=== PATIENT | female | born 2000 | race Caucasian/White ===

== ENCOUNTER 2020-03-30 13:49 | Emergency (ER) | payer MEDICAID, SELFPAY ==
[2020-03-30] VITALS (7 sets, daily range): BP systolic 133–146; BP diastolic 87–94; PULSE 82–100; RESP 16–18; TEMP 36.6; O2SAT 94–98; BMI 38.0
--- NOTE | 2020-03-30 14:19 | ED_ITS ---
HPI - Abdominal Pain General: Chief Complaint: Abdominal Pain Stated Complaint: lower pelvic pain Time Seen by Provider: 03/30/20 13:55 History of Present Illness: HPI narrative: 19-year-old female comes in complaining abdominal pain more periumbilical suprapubic pain began last night. She has leukorrhea of but no significant vaginal discharge change. She is about [address] Oliva. He has no vomiting denies dysuria urgency or frequency she does complain of diarrhea and nausea as well denies any GI blood losses no shortness of breath or cough. She notes that vomiting is worse when she drinks any fluids and she has had a very poor appetite. She denies any vaginal bleeding. MD elicited complaint: abdominal pain Pertinent past history: other (Current ) Onset (ago): day(s) Location: Periumbilical and Suprapubic Quality: cramping Radiation: none Migration to: no migration Exacerbating factors: nothing Relieving factors: nothing Associated Symptoms: Reports anorexia, poor appetite and vomiting; Denies change in bowel habits, change in stool character, chills, coffee ground emesis, constipation, GI cramping, diarrhea, dyspepsia, dysuria, fever(s), heartburn, hematochezia, hematuria and hematemesis Treatments prior to arrival: other Related Data: Date of Last Menstrual Period: 02/03/20 Review of Systems Const: Denies: fever(s) or chills ENMT: Denies: throat pain, ear or mastoid pain, nasal discharge or nasal congestion Card: Denies: chest pain, edema, dyspnea on exertion or orthopnea Resp: Denies: dyspnea, productive cough or non-productive cough GI: Reports: vomiting; Denies: hematemesis, coffee ground emesis, heartburn, diarrhea, constipation, GI cramping, change in bowel habits, change in stool character or hematochezia : Denies: dysuria or hematuria Skin/Breast: Denies: rash or pruritus PFSH ED PFSH: Medical History (Updated 04/02/20 @ 22:27 by ELY Galdamez) Ganglion cyst state, incidental Surgical History (Updated 03/30/20 @ 14:23 by Clarence Martin DO) S/P tonsillectomy and adenoidectomy Social History Smoking and tobacco status: current every day smoker Female Reproductive History: Date of last menstrual period: 02/03/20 Physical Exam Const: COMMON NORMALS: no acute distress GENERAL APPEARANCE: cooperative and comfortable ORIENTATION/CONSCIOUSNESS: Yes awake, Yes oriented to person, Yes oriented to place and Yes oriented to time HENMT: COMMON NORMALS: normocephalic, atraumatic, hearing grossly normal bilaterally, external ears normal, EAC's normal, TM's normal bilaterally, Normal nasal mucous membranes and turbinates present, moist oral mucous membranes and oropharynx normal HEAD & SCALP: normocephalic and atraumatic NOSE: Normal nasal mucous membranes and turbinates present EXTERNAL EAR: Yes external ears normal EXTERNAL AUDITORY CANAL: EAC's normal TYMPANIC MEMBRANE: TM's normal bilaterally Eye: COMMON NORMALS: Equal, round and reactive pupils present, EOMs intact bilaterally, conjunctivae normal and no scleral icterus CONJUNCTIVA: Yes conjunctivae normal PUPIL: Yes Equal, round and reactive pupils present Neck/C-Spine: COMMON NORMALS: full ROM, no lymphadenopathy, supple and no JVD Lymph: LYMPHATIC: no lymphadenopathy noted and no lymphedema noted Resp: COMMON NORMALS: normal respiratory effort, No retractions, No use of accessory muscles and clear to auscultation bilaterally AUSCULTATION: clear to auscultation bilaterally Cardio: COMMON NORMALS: no JVD, regular rate, regular rhythm and No murmurs present (Cardio) RATE: regular rate RHYTHM: regular rhythm GI: COMMON NORMALS: Soft to palpation and No hepatosplenomegaly present AUSCULTATION: Yes normoactive bowel sounds PALPATION: Yes Soft to palpation, No Tenderness to palpation present (GI), No Guarding due to palpation present (GI) and Yes No hepatosplenomegaly present Extremity: COMMON NORMALS: normal to inspection, capillary refill normal, no clubbing, cyanosis or edema, no calf tenderness and no pedal edema Neuro: SENSORIUM/ORIENTATION: Yes oriented to person, Yes oriented to place and Yes oriented to time Skin: COMMON NORMALS: no rashes or lesions noted GENERAL SKIN EXAM: no rashes or lesions noted Course Vital Signs: Vital signs: Vital Signs Temperature 97.9 F 03/30/20 13:55 Pulse Rate 83 03/30/20 19:03 Respiratory Rate 16 03/30/20 19:03 Blood Pressure 135/87 03/30/20 19:03 Pulse Oximetry 98 03/30/20 19:03 MDM - Abdominal Pain MDM Narrative: Medical decision making narrative: Reviewed findings with the patient. Will discharge patient home with ovarian cyst follow-up with her primary care for potential referral for ENT if persists return for this problem Lab Data: Labs: Lab Results 03/30/20 03/30/20 03/30/20 Range/Units 14:22 14:22 14:30 WBC 13.4 H (4.0-10.0) 10^3/ uL RBC 4.82 (4.1-5.3) 10^6/u L Hgb 12.7 (11.5-15.3) g/dL Hct 40.1 (37.0-47.0) % MCV 83.2 (81-99) fL MCH 26.3 L (28.0-34.0) pg MCHC 31.7 (30.0-36.0) g/dL RDW 15.4 H (12.1-15.1) % Plt Count 238 (130-400) 10^3/c mm MPV 10.3 (7.4-10.4) fL Neut % (Auto) 89.2 % Lymph % (Auto) 8.0 % [place] % (Auto) 1.9 % Eos % (Auto) 0.1 % Baso % (Auto) 0.2 % Neut # (Auto) 12.0 H (1.8-7.7) 10^3/u L Lymph # (Auto) 1.1 (0.8-4.8) 10^3/u L [place] # (Auto) 0.3 (0.2-0.9) 10^3/u L Eos # (Auto) 0.0 (0.0-0.8) 10^3/u L Baso # (Auto) 0.0 (0.0-0.1) 10^3/u L Nucleated RBC % (a uto) 0 % Nucleated RBCs # 0.0 /100WBC Sodium 133 L (136-145) mmol/L Potassium 3.8 (3.5-5.1) mmol/L Chloride 100 (98-107) mmol/L Carbon Dioxide 21 L (22-29) mmol/L Anion Gap 15.8 (5-19) BUN 8 (6-20) mg/dL Creatinine 0.4 L (0.5-0.9) mg/dL GFR Calculation 201.5 H (90-130) mL/min Glucose 105 (65-115) mg/dL Calculated Osmolal ity 272 L (285-295) mOsm/k g Calcium 10.0 (8.5-10.5) mg/dL Total Bilirubin 0.2 (0.15-1.2) mg/dL AST 18 (0-32) U/L ALT 22 (0-33) U/L Alkaline Phosphata se 64 (35-105) IU/L Total Protein 7.3 (6.6-8.7) g/dL Albumin 4.6 (3.5-5.2) g/dL Globulin 2.7 (1.3-4.6) g/dL Lipase 16 (13-60) U/L HCG, Qual Positive H (Negative) Urine Color (Yellow) Urine Appearance (CLEAR) Urine pH (5-7) Ur Specific Gravit y (1.005-1.030) Urine Protein (Negative) Urine Glucose (UA) (Normal) Urine Ketones (Negative) Urine Blood (Negative) Urine Nitrate (Negative) Urine Bilirubin (NEGATIVE) Urine Urobilinogen (Negative) mg/dL Ur Leukocyte Cristy ase (Negative) 03/30/20 Range/Units 14:30 WBC (4.0-10.0) 10^3/ uL RBC (4.1-5.3) 10^6/u L Hgb (11.5-15.3) g/dL Hct (37.0-47.0) % MCV (81-99) fL MCH (28.0-34.0) pg MCHC (30.0-36.0) g/dL RDW (12.1-15.1) % Plt Count (130-400) 10^3/c mm MPV (7.4-10.4) fL Neut % (Auto) % Lymph % (Auto) % [place] % (Auto) % Eos % (Auto) % Baso % (Auto) % Neut # (Auto) (1.8-7.7) 10^3/u L Lymph # (Auto) (0.8-4.8) 10^3/u L [place] # (Auto) (0.2-0.9) 10^3/u L Eos # (Auto) (0.0-0.8) 10^3/u L Baso # (Auto) (0.0-0.1) 10^3/u L Nucleated RBC % (a uto) % Nucleated RBCs # /100WBC Sodium (136-145) mmol/L Potassium (3.5-5.1) mmol/L Chloride (98-107) mmol/L Carbon Dioxide (22-29) mmol/L Anion Gap (5-19) BUN (6-20) mg/dL Creatinine (0.5-0.9) mg/dL GFR Calculation (90-130) mL/min Glucose (65-115) mg/dL Calculated Osmolal ity (285-295) mOsm/k g Calcium (8.5-10.5) mg/dL Total Bilirubin (0.15-1.2) mg/dL AST (0-32) U/L ALT (0-33) U/L Alkaline Phosphata se (35-105) IU/L Total Protein (6.6-8.7) g/dL Albumin (3.5-5.2) g/dL Globulin (1.3-4.6) g/dL Lipase (13-60) U/L HCG, Qual (Negative) Urine Color Yellow (Yellow) Urine Appearance Clear (CLEAR) Urine pH 7 (5-7) Ur Specific Gravit y 1.010 (1.005-1.030) Urine Protein Neg (Negative) Urine Glucose (UA) Norm (Normal) Urine Ketones Negative (Negative) Urine Blood Neg (Negative) Urine Nitrate Negative (Negative) Urine Bilirubin Neg (NEGATIVE) Urine Urobilinogen Norm (Negative) mg/dL Ur Leukocyte Cristy ase Negative (Negative) Discharge Plan Discharge Patient Disposition: Home, Self-Care Clinical Impression: Abdominal pain, Ovarian cyst Condition: Stable Prescriptions: New promethazine 12.5 mg tablet 12.5 mg PO Q6H PRN (Reason: nausea and vomiting) Qty: 20 RF: 0 hydrocodone-acetaminophen 5-325 mg tablet 1 tab PO Q6H PRN (Reason: pain) Qty: 20 RF: 0 No Action PNV cmb#95-ferrous fumarate-FA [] 28 mg iron- 800 mcg Tablet 1 tab PO DAILY RF: 0 Tylenol 325 mg Tablet 325 mg PO QID PRN (Reason: PAIN/FEVER) RF: 0 Discharge Orders: Discharge Order (Routine); Ordered 03/30/20 Ordered By: Clarence Martin Referrals: Dayana Oliva MD [Primary Care Provider] - Discharge Diet: Clear Liquid Discharge Activity: Increase activity as tolerated Patient Instructions: Abdominal Pain (ED) Activity Restrictions/Additional Instructions: Follow-up with your primary care doctor return to the emergency room for further problems Discharge Date/Time: 03/30/20 19:04 Coding Level of Care Code ED Music Grapher for Chg Fwd Exam Comprehensive
[2020-03-30] MEDS: sodium chloride 0.9% 1,000 ML 999 ML IV (14:22)
[2020-03-30 14:26] LABS: Basophils % 0.2 %; Eosinophils % 0.1 %; Hematocrit 40.1 % (37.0-47.0); Hemoglobin 12.7 g/dL (11.5-15.3); Lymphocytes # 1.1 10^3/uL (0.8-4.8); Mean Corpuscular HGB Conc 31.7 g/dL (30.0-36.0); Mean Corpuscular Hemoglobin 26.3 pg (28.0-34.0); Mean Corpuscular Volume 83.2 fL (81-99); Mean Platelet Volume 10.3 fL (7.4-10.4); Monocytes # 0.3 10^3/uL (0.2-0.9); Monocytes % 1.9 %; Neutrophils % 89.2 %; Nucleated Red Blood Cells % 0 %; Platelet Count 238 10^3/cmm (130-400); Red Blood Count 4.82 10^6/uL (4.1-5.3); Red Cell Distribution Width 15.4 % (12.1-15.1); White Blood Count 13.4 10^3/uL (4.0-10.0)
[2020-03-30 14:37] LABS: HCG Qualitative Urine. Positive (Negative)
[2020-03-30 14:51] LABS: Add Urine Microscopic? NO
[2020-03-30 14:52] LABS: Bilirubin Urine Neg (NEGATIVE); Blood Urine Neg (Negative); Glucose Urine UA Norm (Normal); Ketones Urine Negative (Negative); Leukocyte Esterase Urine Negative (Negative); Nitrate Urine Negative (Negative); Protein Urine Neg (Negative); Urine Appearance Clear (CLEAR); Urine Color Yellow (Yellow); Urobilinogen Urine Norm (Negative); pH Urine 7 (5-7)
[2020-03-30 14:56] LABS: Alanine Aminotransferase 22 U/L (0-33); Albumin Level 4.6 g/dL (3.5-5.2); Alkaline Phosphatase 64 IU/L (35-105); Anion Gap 15.8 (5-19); Aspartate Amino Transferase 18 U/L (0-32); Blood Urea Nitrogen 8 mg/dL (6-20); Carbon Dioxide 21 mmol/L (22-29); Chloride 100 mmol/L (98-107); Globulin 2.7 g/dL (1.3-4.6); Glomerular Filtration Rate 201.5 mL/min (90-130); Glucose 105 mg/dL (65-115); Lipase 16 U/L (13-60); Osmolality Calculated 272 mOsm/kg (285-295); Potassium 3.8 mmol/L (3.5-5.1); Sodium 133 mmol/L (136-145); Total Bilirubin 0.2 mg/dL (0.15-1.2); Total Protein 7.3 g/dL (6.6-8.7)
--- NOTE | 2020-03-30 16:40 | USR_ITS ---
PROCEDURE INFORMATION: Exam: US , Limited Exam date and time: 03/30/2020 4:49 PM Age: 19 years old Clinical indication: complicated by abdominal or pelvic pain; Lower; Second trimester; Gestational age or lmp: 15w6d; ; Patient HX: PT in extreme pain, started yesterday. No bleeding or discharge; Additional info: Confiem intrauterine preg TECHNIQUE: Imaging protocol: Real-time ultrasound of the maternal uterus with image documentation. Exam focused on the clinical indication. COMPARISON: No relevant prior studies available. FINDINGS: Gestation: Single intrauterine gestation in cephalic presentation. Measured estimated gestational age 15 weeks 6 days. Biparietal diameter 15 weeks 5 days, head circumference 16 weeks 0 days, abdominal circumference 16 weeks 3 days, femur length 15 weeks 2 days. weight approximately 138 g. HC/AC 1.16. FL/HC 14.9. FL/AC 17.3 No detailed anatomy assessment imaging performed. Heart rate: heart rate 147 bpm and regular. Placenta: Posterior placenta without visible previa or subchorionic hemorrhage. MATERNAL: Cervix: Cervical length 3 cm. Right adnexa: Right ovary measures 3.7 cm x 2.5 cm x 3.6 cm. Positive arterial flow to color Doppler assessment. No visible right adnexal mass or cystic lesion. Left adnexa: Very large simple appearing cystic structure left adnexa dimensions approximately 13 cm by 10.3 cm x 12.1 cm. Potential very large left ovarian cyst versus paraovarian/fallopian cyst. Left ovary measures measures approximately 3.5 cm by 3.4 cm by 3.5 cm. Positive arterial flow to color Doppler assessment. Other findings: No free fluid in the cul-de-sac. US/US OB limited [id number] IMPRESSION: 1. Large left adnexal simple cystic structure dimensions approximately 13 cm x 10.3 cm x 12.1 cm potential very large left ovarian cyst versus paraovarian/fallopian cyst. 2. Single intrauterine gestation in cephalic presentation with positive activity measured age 15 weeks 6 days. 3. heart rate 147 bpm and regular.
[2020-03-30] MEDS: morphine 4 mg/mL SDV 1 mL 2 MG IVP (17:28)
== END 2020-03-30 19:04 | disposition home or self-care (01) ==
PROVIDERS: Emergency Provider Family Medicine; PCP Family Medicine
DX: O34.82 Maternal care for other abnormalities of pelvic organs, second trimester (principal); N83.292 Other ovarian cyst, left side; Z3A.16 16 weeks gestation of pregnancy; O99.332 Smoking (tobacco) complicating pregnancy, second trimester; F17.210 Nicotine dependence, cigarettes, uncomplicated
CPT/HCPCS: 12345; 76815; 80053; 81003; 81025; 83690; 85025; 87210; 87491; 87591; 87661; 96361; 96374; 96375; 99284; A9270; J2270; J7030

== ENCOUNTER 2020-04-02 17:00 | Emergency (ER) | payer MEDICAID, SELFPAY ==
[2020-04-02] VITALS (7 sets, daily range): BP systolic 109–120; BP diastolic 64–96; PULSE 87–120; RESP 16–22; TEMP 36.5–37.3; O2SAT 97–100; BMI 37.8
--- NOTE | 2020-04-02 17:35 | USR_ITS ---
PROCEDURE INFORMATION: Exam: US Nonobstetric Pelvis; Complete Exam date and time: 04/02/2020 7:01 PM Age: 19 years old Clinical indication: Pelvic pain; Additional info: Worsening ovarian cyst pain, 15 weeks TECHNIQUE: Imaging protocol: Transabdominal pelvic nonobstetric ultrasound. Complete exam. Real time ultrasound with image documentation. COMPARISON: US OB limited [id number] 03/30/2020 4:53 PM FINDINGS: Gestation: There is a single live intrauterine gestation with a heart rate of 176 bpm. This was a limited study without full evaluation of the uterus or gestation. Uterus/cervix: Uterus measures 11.6 x 10.6 x 10.6 cm. Right adnexa: The right ovary is unremarkable and measures 3.4 x 2.8 x 1.3 cm. Left adnexa: There is a left ovarian cyst that measures 13.9 x 12.1 x 11.4 cm. There are few internal echoes or debris within the left ovarian cyst. The left ovarian cyst on the prior exam measured 13.0 x 10.3 x 12.1 cm. Doppler/color flow evaluation of the left or right ovary was not performed. Free fluid: No free fluid. Bladder: Normal. US/US pelvic complete* [id number] IMPRESSION: 1. Large left adnexal simple cyst with a small amount of debris. The measurement is slightly larger than the prior exam. No free fluid. No ovarian Doppler or color flow images are provided. 2. Limited visualization of the intrauterine gestation demonstrates good cardiac activity.
--- NOTE | 2020-04-02 17:49 | W.ED.ABDPA2 ---
Documented by User: ELY Galdamez 04/02/20 20:56 HPI - Abdominal Pain General: Chief Complaint: Abdominal Pain Stated Complaint: lower abd pain Time Seen by Provider: 04/02/20 17:34 History of Present Illness: HPI narrative: Patient sent over from Dr. Oliva's office for acute abdomen. Patient is positive for chlamydia and track and not treated. Patient was seen here the other day in the ER with a left ovarian cyst and seems to be worse now. Patient did not get the pain medicine prescription filled. Does not have fever chills or vaginal discharge. MD elicited complaint: abdominal pain Pertinent past history: other Onset (ago): day(s) Pain Consistency: constant Location: Diffuse and Pelvis Severity: severe Pain scale (0-10): 8 Quality: aching Exacerbating factors: movement Relieving factors: rest Associated Symptoms: Denies chills, fever(s), nausea and vomiting Related Data: Date of Last Menstrual Period: 01/29/20 Review of Systems Const: Denies: fever(s), chills or body aches Eyes: Denies: change in vision or blurry vision ENMT: Denies: throat pain or nasal congestion Card: Denies: chest pain or dyspnea on exertion Resp: Denies: dyspnea, productive cough or non-productive cough GI: Denies: abdominal pain, nausea or vomiting : Reports: pelvic pain Musc: Denies: extremity pain Skin/Breast: Denies: rash Neuro: Denies: headache(s) Psych: Denies: anxiety or depression Stas/Lymph: Denies: easy bruising PFSH ED PFSH: Medical History (Updated 03/30/20 @ 17:56 by Clarence Martin DO) Ganglion cyst state, incidental Surgical History (Updated 03/30/20 @ 14:23 by Clarence Martin DO) S/P tonsillectomy and adenoidectomy Social History Smoking and tobacco status: current every day smoker Female Reproductive History: Date of last menstrual period: 01/29/20 Physical Exam Const: COMMON NORMALS: no acute distress, average body habitus and patient oriented x3 HENMT: COMMON NORMALS: normocephalic HEAD & SCALP: normal to inspection and normocephalic FACE & SINUS: normal facial exam Eye: COMMON NORMALS: conjunctivae normal GENERAL EYE: appearance normal, both eyes and all related structures CONJUNCTIVA: Yes conjunctivae normal Neck/C-Spine: COMMON NORMALS: no JVD Chest: COMMONS NORMALS: normal inspection of the chest Resp: COMMON NORMALS: normal respiratory effort and clear to auscultation bilaterally AUSCULTATION: clear to auscultation bilaterally Cardio: COMMON NORMALS: no JVD, regular rate and regular rhythm RATE: regular rate RHYTHM: regular rhythm GI: COMMON NORMALS: Normal to inspection, nondistended, normoactive bowel sounds present INSPECTION: Yes normal to inspection AUSCULTATION: Yes normoactive bowel sounds PALPATION: Yes Tenderness to palpation present (GI) (Generalized worse in the left lower quadrant) Extremity: COMMON NORMALS: normal to inspection and full ROM Neuro: COMMON NORMALS: patient oriented x3 Course Vital Signs: Vital signs: Vital Signs Temperature 99.1 F 04/02/20 20:00 Pulse Rate 106 H 04/02/20 20:00 Respiratory Rate 20 H 04/02/20 20:00 Blood Pressure 120/71 04/02/20 20:00 Pulse Oximetry 97 04/02/20 20:00 MDM - Abdominal Pain MDM Narrative: Medical decision making narrative: Spoke with Dr. Chan about this case. said I should give the OB doctor. call I spoke with Dr. Rose times to Dr. Oliva x2 . Dr. Oliva agreed to admit and Dr. Roseagreed to consult on this patient. Dr. Rose came down and consulted on patient and said patient need to be transferred to [place] for possible removal of the cyst would require a surgical procedure and can be done laparoscopically. I spoke with Dr. Fortino Herman at [facility] and agreed except patient Lab Data: Labs: Lab Results 04/02/20 04/02/20 04/02/20 Range/Units 17:25 17:25 18:28 WBC 16.8 H (4.0-10.0) 10^3/ uL RBC 4.11 (4.1-5.3) 10^6/u L Hgb 11.5 (11.5-15.3) g/dL Hct 34.4 L (37.0-47.0) % MCV 83.7 (81-99) fL MCH 28.0 (28.0-34.0) pg MCHC 33.4 (30.0-36.0) g/dL RDW 15.4 H (12.1-15.1) % Plt Count 271 (130-400) 10^3/c mm MPV 10.0 (7.4-10.4) fL Neut % (Auto) 84.0 % Lymph % (Auto) 8.6 % [place] % (Auto) 6.7 % Eos % (Auto) 0.2 % Baso % (Auto) 0.1 % Neut # (Auto) 14.1 H (1.8-7.7) 10^3/u L Lymph # (Auto) 1.5 (0.8-4.8) 10^3/u L [place] # (Auto) 1.1 H (0.2-0.9) 10^3/u L Eos # (Auto) 0.0 (0.0-0.8) 10^3/u L Baso # (Auto) 0.0 (0.0-0.1) 10^3/u L Nucleated RBC % (a uto) 0 % Nucleated RBCs # 0.0 /100WBC Sodium 133 L (136-145) mmol/L Potassium 3.6 (3.5-5.1) mmol/L Chloride 100 (98-107) mmol/L Carbon Dioxide 18 L (22-29) mmol/L Anion Gap 18.6 (5-19) BUN 7 (6-20) mg/dL Creatinine 0.4 L (0.5-0.9) mg/dL GFR Calculation 201.5 H (90-130) mL/min Glucose 112 (65-115) mg/dL Calculated Osmolal ity 273 L (285-295) mOsm/k g Calcium 9.6 (8.5-10.5) mg/dL Total Bilirubin 0.4 (0.15-1.2) mg/dL AST 10 (0-32) U/L ALT 17 (0-33) U/L Alkaline Phosphata se 69 (35-105) IU/L Total Protein 7.3 (6.6-8.7) g/dL Albumin 4.0 (3.5-5.2) g/dL Globulin 3.3 (1.3-4.6) g/dL Lipase 12 L (13-60) U/L Urine Color Yellow (Yellow) Urine Appearance Cloudy A (CLEAR) Urine pH 5 (5-7) Ur Specific Gravit y 1.020 (1.005-1.030) Urine Protein Neg (Negative) Urine Glucose (UA) Norm (Normal) Urine Ketones 2+ H (Negative) Urine Blood Neg (Negative) Urine Nitrate Negative (Negative) Urine Bilirubin Neg (NEGATIVE) Urine Urobilinogen Neg (Negative) mg/dL Ur Leukocyte Cristy ase 2+ H (Negative) Urine RBC 0-4 H (0-2) /hpf Urine WBC 25-40 H (0-5) /hpf Ur Squamous Epith Cells >100 H (0-5) Urine Bacteria 1+ H (NONE) Discharge Plan Discharge Prescriptions: No Action PNV cmb#95-ferrous fumarate-FA [] 28 mg iron- 800 mcg Tablet 1 tab PO DAILY RF: 0 promethazine 12.5 mg tablet 12.5 mg PO Q6H PRN (Reason: nausea and vomiting) Qty: 20 RF: 0 hydrocodone-acetaminophen 5-325 mg tablet 1 tab PO Q6H PRN (Reason: pain) Qty: 20 RF: 0 Tylenol 325 mg Tablet 325 mg PO QID PRN (Reason: PAIN/FEVER) RF: 0 Coding Level of Care Code ED Cartridge Loading Operator for Chg Fwd Exam Comprehensive Documented by User: Jessica Chan MD 04/02/20 17:53 HPI - Abdominal Pain General: Chief Complaint: Abdominal Pain Stated Complaint: lower abd pain Time Seen by Provider: 04/02/20 17:34 PFSH ED PFSH: Medical History (Updated 03/30/20 @ 17:56 by Clarence Martin DO) Ganglion cyst state, incidental Surgical History (Updated 03/30/20 @ 14:23 by Clarence Martin DO) S/P tonsillectomy and adenoidectomy Social History Smoking and tobacco status: current every day smoker Course Vital Signs: Vital signs: Vital Signs Temperature 99.1 F 04/02/20 20:00 Pulse Rate 106 H 04/02/20 20:00 Respiratory Rate 20 H 04/02/20 20:00 Blood Pressure 120/71 04/02/20 20:00 Pulse Oximetry 97 04/02/20 20:00 MDM - Abdominal Pain Lab Data: Labs: Lab Results 04/02/20 04/02/20 04/02/20 Range/Units 17:25 17:25 18:28 WBC 16.8 H (4.0-10.0) 10^3/ uL RBC 4.11 (4.1-5.3) 10^6/u L Hgb 11.5 (11.5-15.3) g/dL Hct 34.4 L (37.0-47.0) % MCV 83.7 (81-99) fL MCH 28.0 (28.0-34.0) pg MCHC 33.4 (30.0-36.0) g/dL RDW 15.4 H (12.1-15.1) % Plt Count 271 (130-400) 10^3/c mm MPV 10.0 (7.4-10.4) fL Neut % (Auto) 84.0 % Lymph % (Auto) 8.6 % [place] % (Auto) 6.7 % Eos % (Auto) 0.2 % Baso % (Auto) 0.1 % Neut # (Auto) 14.1 H (1.8-7.7) 10^3/u L Lymph # (Auto) 1.5 (0.8-4.8) 10^3/u L [place] # (Auto) 1.1 H (0.2-0.9) 10^3/u L Eos # (Auto) 0.0 (0.0-0.8) 10^3/u L Baso # (Auto) 0.0 (0.0-0.1) 10^3/u L Nucleated RBC % (a uto) 0 % Nucleated RBCs # 0.0 /100WBC Sodium 133 L (136-145) mmol/L Potassium 3.6 (3.5-5.1) mmol/L Chloride 100 (98-107) mmol/L Carbon Dioxide 18 L (22-29) mmol/L Anion Gap 18.6 (5-19) BUN 7 (6-20) mg/dL Creatinine 0.4 L (0.5-0.9) mg/dL GFR Calculation 201.5 H (90-130) mL/min Glucose 112 (65-115) mg/dL Calculated Osmolal ity 273 L (285-295) mOsm/k g Calcium 9.6 (8.5-10.5) mg/dL Total Bilirubin 0.4 (0.15-1.2) mg/dL AST 10 (0-32) U/L ALT 17 (0-33) U/L Alkaline Phosphata se 69 (35-105) IU/L Total Protein 7.3 (6.6-8.7) g/dL Albumin 4.0 (3.5-5.2) g/dL Globulin 3.3 (1.3-4.6) g/dL Lipase 12 L (13-60) U/L Urine Color Yellow (Yellow) Urine Appearance Cloudy A (CLEAR) Urine pH 5 (5-7) Ur Specific Gravit y 1.020 (1.005-1.030) Urine Protein Neg (Negative) Urine Glucose (UA) Norm (Normal) Urine Ketones 2+ H (Negative) Urine Blood Neg (Negative) Urine Nitrate Negative (Negative) Urine Bilirubin Neg (NEGATIVE) Urine Urobilinogen Neg (Negative) mg/dL Ur Leukocyte Cristy ase 2+ H (Negative) Urine RBC 0-4 H (0-2) /hpf Urine WBC 25-40 H (0-5) /hpf Ur Squamous Epith Cells >100 H (0-5) Urine Bacteria 1+ H (NONE) Discharge Plan Discharge Prescriptions: No Action PNV cmb#95-ferrous fumarate-FA [] 28 mg iron- 800 mcg Tablet 1 tab PO DAILY RF: 0 promethazine 12.5 mg tablet 12.5 mg PO Q6H PRN (Reason: nausea and vomiting) Qty: 20 RF: 0 hydrocodone-acetaminophen 5-325 mg tablet 1 tab PO Q6H PRN (Reason: pain) Qty: 20 RF: 0 Tylenol 325 mg Tablet 325 mg PO QID PRN (Reason: PAIN/FEVER) RF: 0 Coding Level of Care Code ED Cartridge Loading Operator for Chg Fwd Exam Comprehensive
[2020-04-02 17:52] LABS: Basophils % 0.1 %; Eosinophils % 0.2 %; Hematocrit 34.4 % (37.0-47.0); Hemoglobin 11.5 g/dL (11.5-15.3); Lymphocytes # 1.5 10^3/uL (0.8-4.8); Lymphocytes % 8.6 %; Mean Corpuscular HGB Conc 33.4 g/dL (30.0-36.0); Mean Corpuscular Volume 83.7 fL (81-99); Monocytes # 1.1 10^3/uL (0.2-0.9); Monocytes % 6.7 %; Neutrophils # 14.1 10^3/uL (1.8-7.7); Nucleated Red Blood Cells % 0 %; Platelet Count 271 10^3/cmm (130-400); Red Blood Count 4.11 10^6/uL (4.1-5.3); Red Cell Distribution Width 15.4 % (12.1-15.1); White Blood Count 16.8 10^3/uL (4.0-10.0)
[2020-04-02 18:10] LABS: Alanine Aminotransferase 17 U/L (0-33); Alkaline Phosphatase 69 IU/L (35-105); Anion Gap 18.6 (5-19); Aspartate Amino Transferase 10 U/L (0-32); Blood Urea Nitrogen 7 mg/dL (6-20); Calcium 9.6 mg/dL (8.5-10.5); Carbon Dioxide 18 mmol/L (22-29); Chloride 100 mmol/L (98-107); Globulin 3.3 g/dL (1.3-4.6); Glomerular Filtration Rate 201.5 mL/min (90-130); Glucose 112 mg/dL (65-115); Lipase 12 U/L (13-60); Osmolality Calculated 273 mOsm/kg (285-295); Potassium 3.6 mmol/L (3.5-5.1); Sodium 133 mmol/L (136-145); Total Bilirubin 0.4 mg/dL (0.15-1.2); Total Protein 7.3 g/dL (6.6-8.7)
[2020-04-02] MEDS: HYDROcodone-acetaminophen 7.5-325 mg Tablet 1 TAB PO (18:32)
[2020-04-02] MEDS: metroNIDAZOLE 500 MG Tablet 2000 MG PO (18:32)
[2020-04-02] MEDS: azithromycin 250 mg Tablet 1000 MG PO (18:33)
--- NOTE | 2020-04-02 19:15 | PC.NURSE ---
RECEIEVED REPORT, NO ACUTE CHANGES. DOPPLER IN ROOM.
[2020-04-02 19:23] LABS: Add Urine Microscopic? YES; Bilirubin Urine Neg (NEGATIVE); Blood Urine Neg (Negative); Glucose Urine UA Norm (Normal); Ketones Urine 2+ (Negative); Leukocyte Esterase Urine 2+ (Negative); Nitrate Urine Negative (Negative); Protein Urine Neg (Negative); RBC Urine 0-4 /hpf (0-2); Squamous Epithelial Cell Urine >100 (0-5); Urine Appearance Cloudy (CLEAR); Urine Color Yellow (Yellow); Urobilinogen Urine Neg (Negative); WBC Urine 25-40 /hpf (0-5); pH Urine 5 (5-7)
[2020-04-02 19:24] LABS: Add Urine Culture? No; Bacteria Urine 1+
[2020-04-02] MEDS: ondansetron 2 mg/ML SDV 2 mL 4 MG IVP (20:11)
[2020-04-02] MEDS: cefTRIAXone 1,000 MG in sodium chloride 0.9% (plus) 50 ML 100 MG IV (20:39)
[2020-04-02] MEDS: morphine 4 mg/mL SDV 1 mL IVP (21:01)
--- NOTE | 2020-04-02 21:57 | PC.NURSE ---
REPORT CALLED TO ANALILIA AGUILAR [facility] IN [place], GAVE FULL REPORT AND ANSWERED ALL QUESTION
[2020-04-02] MEDS: sodium chloride 0.9% 1,000 ML 125 ML IV (22:21)
[2020-04-02] MEDS: morphine 4 mg/mL SDV 1 mL 2 MG IVP (23:30)
[2020-04-03 00:19] VITALS: BP 113/73; PULSE 110; RESP 18; TEMP 37.2; O2SAT 98
== END 2020-04-03 00:23 | disposition short-term general hospital (02) ==
PROVIDERS: Emergency Medicine; Emergency Provider Nurse Practitioner Family; PCP Family Medicine
DX: R10.9 Unspecified abdominal pain (principal); F17.210 Nicotine dependence, cigarettes, uncomplicated
CPT/HCPCS: 12345; 36415; 76856; 80053; 81001; 83690; 85025; 87070; 87210; 96361; 96365; 96375; 96376; 99284; A9270; J0696; J2270; J2405; J7030; Q0144

== ENCOUNTER 2020-07-24 10:21 | Outpatient (CLI) | payer MEDICAID, SELFPAY ==
[2020-07-24] VITALS (11 sets, daily range): BP systolic 118–148; BP diastolic 66–83; PULSE 74–86; BMI 44.2
[2020-07-24 11:15] LABS: Basophils % 0.2 %; Eosinophils # 0.3 10^3/uL (0.0-0.8); Eosinophils % 3.1 %; Hemoglobin 11.1 g/dL (11.5-15.3); Lymphocytes # 2.2 10^3/uL (0.8-4.8); Lymphocytes % 25.3 %; Mean Corpuscular HGB Conc 31.7 g/dL (30.0-36.0); Mean Corpuscular Hemoglobin 26.6 pg (28.0-34.0); Mean Corpuscular Volume 83.9 fL (81-99); Monocytes # 0.7 10^3/uL (0.2-0.9); Monocytes % 7.9 %; Neutrophils # 5.41 10^3/uL (1.8-7.7); Neutrophils % 63.2 %; Nucleated Red Blood Cells % 0 %; Platelet Count 202 10^3/cmm (130-400); Red Blood Count 4.17 10^6/uL (4.1-5.3); Red Cell Distribution Width 15.4 % (12.1-15.1); White Blood Count 8.6 10^3/uL (4.0-10.0)
[2020-07-24 11:48] LABS: Add Urine Microscopic? YES; Bilirubin Urine Neg (Negative); Blood Urine Neg (Negative); Glucose Urine UA Norm (Normal); Ketones Urine Negative (Negative); Leukocyte Esterase Urine Trace (Negative); Nitrate Urine Negative (Negative); Protein Urine Neg (Negative); Urine Appearance Hazy (CLEAR); Urine Color Yellow (Yellow); Urobilinogen Urine Norm (Negative); pH Urine 7 (5-7)
[2020-07-24 12:08] LABS: Add Urine Culture? No; Bacteria Urine 3+ /hpf; RBC Urine 0-4 /hpf (0-2); Squamous Epithelial Cell Urine 15-25 /hpf (0-5)
[2020-07-24 12:20] LABS: Alanine Aminotransferase 12 U/L (0-33); Albumin Level 3.5 g/dL (3.5-5.2); Alkaline Phosphatase 139 IU/L (35-105); Anion Gap 16.4 (5-19); Aspartate Amino Transferase 15 U/L (0-32); Blood Urea Nitrogen 8 mg/dL (6-20); Calcium 9.6 mg/dL (8.5-10.5); Carbon Dioxide 20 mmol/L (22-29); Chloride 108 mmol/L (98-107); Globulin 2.6 g/dL (1.3-4.6); Glomerular Filtration Rate 155.7 mL/min (90-130); Glucose 109 mg/dL (65-115); Osmolality Calculated 289 mOsm/kg (285-295); Potassium 4.4 mmol/L (3.5-5.1); Sodium 140 mmol/L (136-145); Total Bilirubin 0.2 mg/dL (0.15-1.2); Total Protein 6.1 g/dL (6.6-8.7); Uric Acid 4.9 mg/dL (2.4-5.7)
[2020-07-24 12:57] LABS: Urine Creatinine 78 mg/dL (28-217); Urine Protein Random 6 mg/dL
[2020-07-24 12:58] LABS: UPRO/UCREAT Ratio 0.08 mg/mg CR
== END 2020-07-24 13:05 | disposition home or self-care (01) ==
LOC: OPOB 10:32 → OBGYN 10:33
PROVIDERS: Family Provider Family Medicine; PCP Family Medicine; Visit Provider Family Medicine
DX: O13.9 Gestational [pregnancy-induced] hypertension without significant proteinuria, unspecified trimester (principal); Z3A.00 Weeks of gestation of pregnancy not specified
CPT/HCPCS: 36415; 59025; 80053; 81001; 82570; 84156; 84550; 85025; 99211

== ENCOUNTER 2020-08-07 10:50 | Outpatient (CLI) | payer MEDICAID, SELFPAY ==
[2020-08-07 11:01] VITALS: BMI 45.7
== END 2020-08-07 11:48 | disposition home or self-care (01) ==
LOC: OPOB 10:58
PROVIDERS: Family Provider Family Medicine; PCP Family Medicine; Visit Provider Family Medicine
DX: O16.9 Unspecified maternal hypertension, unspecified trimester (principal); Z3A.00 Weeks of gestation of pregnancy not specified
CPT/HCPCS: 59025

== ENCOUNTER 2020-08-10 13:10 | Outpatient (CLI) | payer MEDICAID, SELFPAY ==
[2020-08-10 13:30] VITALS: TEMP 36.6
[2020-08-10 13:31] VITALS: BP 123/61; PULSE 84
[2020-08-10 13:39] VITALS: RESP 18; TEMP 36.6
[2020-08-10 13:45] VITALS: BMI 45.1
[2020-08-10 13:46] VITALS: BP 122/65; PULSE 83
[2020-08-10 13:55] VITALS: BP 122/65; PULSE 83; RESP 18; TEMP 36.6
== END 2020-08-10 13:53 | disposition home or self-care (01) ==
LOC: OPOB 13:23 → OBGYN 13:24
PROVIDERS: Family Provider Family Medicine; PCP Family Medicine; Visit Provider Family Medicine
DX: O16.9 Unspecified maternal hypertension, unspecified trimester (principal); Z3A.00 Weeks of gestation of pregnancy not specified
CPT/HCPCS: 59025; 99211

== ENCOUNTER 2020-08-15 09:44 | Outpatient (CLI) | payer MEDICAID, SELFPAY ==
[2020-08-15 10:00] VITALS: RESP 20; TEMP 36.6
[2020-08-15 20:22] VITALS: BMI 45.1
== END 2020-08-15 10:35 | disposition home or self-care (01) ==
LOC: OBGYN 16:52 → OPOB 16:52
PROVIDERS: Family Provider Family Medicine; PCP Family Medicine; Visit Provider Family Medicine
DX: O13.9 Gestational [pregnancy-induced] hypertension without significant proteinuria, unspecified trimester (principal); Z3A.00 Weeks of gestation of pregnancy not specified
CPT/HCPCS: 59025; 99211

== ENCOUNTER 2020-08-18 13:39 | Outpatient (CLI) | payer MEDICAID, SELFPAY ==
[2020-08-18 13:49] VITALS: BMI 46.3
[2020-08-18 13:51] VITALS: BP 136/70; PULSE 87
[2020-08-18 14:06] VITALS: BP 135/77; PULSE 81
[2020-08-18 14:21] VITALS: BP 147/69; PULSE 81
== END 2020-08-18 14:25 | disposition home or self-care (01) ==
LOC: OPOB 13:46 → OBGYN 13:47
PROVIDERS: Family Provider Family Medicine; PCP Family Medicine; Visit Provider Family Medicine
DX: O13.9 Gestational [pregnancy-induced] hypertension without significant proteinuria, unspecified trimester (principal)
CPT/HCPCS: 59025

== ENCOUNTER 2020-08-21 11:12 | Outpatient (CLI) | payer MEDICAID, SELFPAY ==
[2020-08-21 11:15] VITALS: RESP 18; TEMP 36.7
[2020-08-21 11:46] VITALS: BMI 46.4
[2020-08-21 11:54] LABS: Basophils % 0.3 %; Eosinophils # 0.2 10^3/uL (0.0-0.8); Eosinophils % 2.3 %; Hematocrit 36.7 % (37.0-47.0); Hemoglobin 11.5 g/dL (11.5-15.3); Lymphocytes # 2.4 10^3/uL (0.8-4.8); Lymphocytes % 23.5 %; Mean Corpuscular HGB Conc 31.3 g/dL (30.0-36.0); Mean Corpuscular Hemoglobin 26.1 pg (28.0-34.0); Mean Corpuscular Volume 83.4 fL (81-99); Mean Platelet Volume 10.5 fL (7.4-10.4); Monocytes # 0.8 10^3/uL (0.2-0.9); Neutrophils # 6.56 10^3/uL (1.8-7.7); Neutrophils % 65.1 %; Nucleated Red Blood Cells % 0 %; Platelet Count 253 10^3/cmm (130-400); Red Cell Distribution Width 15.9 % (12.1-15.1); White Blood Count 10.1 10^3/uL (4.0-10.0)
[2020-08-21 12:15] LABS: Bilirubin Urine Neg (Negative); Blood Urine Neg (Negative); Glucose Urine UA Norm (Normal); Ketones Urine Negative (Negative); Leukocyte Esterase Urine 1+ (Negative); Nitrate Urine Negative (Negative); Protein Urine Neg (Negative); Specific Gravity, Urine 1.015 (1.005-1.030); Urine Appearance Cloudy (CLEAR); Urine Color Yellow (Yellow); Urobilinogen Urine Norm (Negative); pH Urine 6 (5-7)
[2020-08-21 12:16] LABS: Bacteria Urine 2+ /hpf; RBC Urine 0-4 /hpf (0-2)
[2020-08-21 12:17] LABS: Add Urine Culture? No; Mucus Urine TRACE /hpf; WBC Urine 15-25 /hpf (0-5)
[2020-08-21 12:19] LABS: Alanine Aminotransferase 12 U/L (0-33); Albumin Level 3.4 g/dL (3.5-5.2); Alkaline Phosphatase 140 IU/L (35-105); Aspartate Amino Transferase 14 U/L (0-32); Blood Urea Nitrogen 12 mg/dL (6-20); Calcium 9.8 mg/dL (8.5-10.5); Carbon Dioxide 18 mmol/L (22-29); Chloride 108 mmol/L (98-107); Glucose 112 mg/dL (65-115); Osmolality Calculated 287 mOsm/kg (285-295); Sodium 138 mmol/L (136-145); Total Bilirubin 0.2 mg/dL (0.15-1.2); Total Protein 6.4 g/dL (6.6-8.7); Uric Acid 5.8 mg/dL (2.4-5.7)
[2020-08-21 12:33] LABS: Urine Creatinine 115 mg/dL (28-217); Urine Protein Random 14 mg/dL
[2020-08-21 12:34] LABS: UPRO/UCREAT Ratio 0.12 mg/mg CR
[2020-08-21 14:30] VITALS: RESP 18; TEMP 36.7
== END 2020-08-21 12:55 | disposition home or self-care (01) ==
LOC: OPOB 11:21
PROVIDERS: Family Provider Family Medicine; PCP Family Medicine; Visit Provider Family Medicine
DX: O13.9 Gestational [pregnancy-induced] hypertension without significant proteinuria, unspecified trimester (principal); Z3A.00 Weeks of gestation of pregnancy not specified
CPT/HCPCS: 36415; 59025; 80053; 81001; 82570; 84156; 84550; 85025; 99211

== ENCOUNTER 2020-08-24 15:21 | Outpatient (CLI) | payer MEDICAID, SELFPAY ==
[2020-08-24 15:30] VITALS: BMI 46.4
[2020-08-24 15:39] VITALS: BP 109/49; PULSE 98; RESP 16; TEMP 36.5
[2020-08-24 16:13] VITALS: BP 129/71; PULSE 90
[2020-08-24 16:43] VITALS: BP 124/62; PULSE 82
[2020-08-24 16:53] VITALS: BP 124/62; PULSE 82; RESP 16; TEMP 36.5
== END 2020-08-24 16:53 | disposition home or self-care (01) ==
LOC: OPOB 15:30 → OBGYN 15:31
PROVIDERS: Family Provider Family Medicine; PCP Family Medicine; Visit Provider Family Medicine
DX: O24.419 Gestational diabetes mellitus in pregnancy, unspecified control (principal); Z3A.00 Weeks of gestation of pregnancy not specified
CPT/HCPCS: 59025

== ENCOUNTER 2020-08-28 10:51 | Outpatient (CLI) | payer MEDICAID, SELFPAY ==
[2020-08-28] VITALS (7 sets, daily range): BP systolic 110–127; BP diastolic 55–77; PULSE 69–93; RESP 18; TEMP 36.7; BMI 47.8
[2020-08-28 11:43] LABS: Basophils % 0.3 %; Eosinophils # 0.3 10^3/uL (0.0-0.8); Eosinophils % 2.4 %; Hematocrit 35.2 % (37.0-47.0); Hemoglobin 11.2 g/dL (11.5-15.3); Lymphocytes # 2.2 10^3/uL (0.8-4.8); Lymphocytes % 19.5 %; Mean Corpuscular HGB Conc 31.8 g/dL (30.0-36.0); Mean Corpuscular Hemoglobin 26.9 pg (28.0-34.0); Mean Corpuscular Volume 84.4 fL (81-99); Mean Platelet Volume 10.5 fL (7.4-10.4); Monocytes # 0.9 10^3/uL (0.2-0.9); Monocytes % 8.1 %; Neutrophils # 7.76 10^3/uL (1.8-7.7); Neutrophils % 69.2 %; Nucleated Red Blood Cells % 0 %; Platelet Count 212 10^3/cmm (130-400); Red Blood Count 4.17 10^6/uL (4.1-5.3); Red Cell Distribution Width 16.1 % (12.1-15.1); White Blood Count 11.2 10^3/uL (4.0-10.0)
[2020-08-28 12:01] LABS: Alanine Aminotransferase 11 U/L (0-33); Albumin Level 3.3 g/dL (3.5-5.2); Alkaline Phosphatase 149 IU/L (35-105); Aspartate Amino Transferase 14 U/L (0-32); Blood Urea Nitrogen 8 mg/dL (6-20); Calcium 9.3 mg/dL (8.5-10.5); Carbon Dioxide 20 mmol/L (22-29); Chloride 109 mmol/L (98-107); Globulin 2.6 g/dL (1.3-4.6); Glomerular Filtration Rate 199.6 mL/min (90-130); Glucose 124 mg/dL (65-115); Osmolality Calculated 290 mOsm/kg (285-295); Sodium 140 mmol/L (136-145); Total Bilirubin 0.2 mg/dL (0.15-1.2); Total Protein 5.9 g/dL (6.6-8.7); Uric Acid 5.2 mg/dL (2.4-5.7)
[2020-08-28 12:11] LABS: Urine Creatinine 104 mg/dL (28-217); Urine Protein Random 15 mg/dL
[2020-08-28 12:14] LABS: Add Urine Microscopic? YES; Bilirubin Urine Neg (Negative); Blood Urine 3+ (Negative); Glucose Urine UA Norm (Normal); Ketones Urine Negative (Negative); Leukocyte Esterase Urine Negative (Negative); Nitrate Urine Negative (Negative); Protein Urine Neg (Negative); Urine Appearance Cloudy (CLEAR); Urine Color Yellow (Yellow); Urobilinogen Urine Neg (Negative); pH Urine 6.5 (5-7)
[2020-08-28 12:15] LABS: Add Urine Culture? No; Bacteria Urine 3+ /hpf; Mucus Urine 1+ /hpf; RBC Urine 25-40 /hpf (0-2); Squamous Epithelial Cell Urine 15-25 /hpf (0-5)
[2020-08-28 12:26] LABS: UPRO/UCREAT Ratio 0.14 mg/mg CR
== END 2020-08-28 12:25 | disposition home or self-care (01) ==
LOC: OPOB 10:57 → OBGYN 10:58
PROVIDERS: Family Provider Family Medicine; PCP Family Medicine; Visit Provider Family Medicine
DX: O24.419 Gestational diabetes mellitus in pregnancy, unspecified control (principal); Z3A.00 Weeks of gestation of pregnancy not specified
CPT/HCPCS: 36415; 59025; 80053; 81001; 82570; 84156; 84550; 85025; 99211

== ENCOUNTER 2020-08-31 15:44 | Outpatient (CLI) | payer MEDICAID, SELFPAY ==
[2020-08-31 15:52] VITALS: BMI 47.9
[2020-08-31 15:53] VITALS: BP 172/74; PULSE 90
[2020-08-31 15:54] VITALS: BP 142/67; PULSE 93
[2020-08-31 16:07] VITALS: BP 0/0
[2020-08-31 16:09] VITALS: BP 134/72; PULSE 94
[2020-08-31 16:22] VITALS: BP 136/74; PULSE 90
--- NOTE | 2020-08-31 16:31 | PC.NURSE ---
Patient's blood pressure cuff malfunctioning and re-inflating multiple times. Blood pressure obtained at 1553 of 172/74 not accurate and an appropriate sized blood pressure cuff placed on patient and new blood pressure obtained immediately following.
== END 2020-08-31 16:30 | disposition home or self-care (01) ==
LOC: OPOB 15:46 → OBGYN 15:47
PROVIDERS: Family Provider Family Medicine; PCP Family Medicine; Visit Provider Family Medicine
DX: O16.9 Unspecified maternal hypertension, unspecified trimester (principal); Z3A.00 Weeks of gestation of pregnancy not specified
CPT/HCPCS: 59025

== ENCOUNTER 2020-09-04 09:50 | Outpatient (CLI) | payer MEDICAID, SELFPAY ==
[2020-09-04 10:03] VITALS: BMI 48.6
[2020-09-04 10:21] VITALS: BP 123/64; PULSE 80
== END 2020-09-04 10:32 | disposition home or self-care (01) ==
PROVIDERS: Family Provider Family Medicine; PCP Family Medicine; Visit Provider Family Medicine
DX: O16.9 Unspecified maternal hypertension, unspecified trimester (principal)
CPT/HCPCS: 59025; 99211

== ENCOUNTER 2020-09-06 06:16 | Inpatient (IN) | payer MEDICAID, SELFPAY ==
[2020-09-06] VITALS (127 sets, daily range): BP systolic 0–187; BP diastolic 0–88; PULSE 34–111; RESP 18; TEMP 36–37.3; O2SAT 56–100; BMI 49.4
[2020-09-06] MEDS: dextrose 5%-lactated ringers 1,000 ML 125 ML IV ×3 (08:05→19:52)
[2020-09-06] MEDS: oxytocin 30 UNIT/500 ML BAG IV (08:10)
[2020-09-06 08:26] LABS: Basophils % 0.2 %; Eosinophils # 0.2 10^3/uL (0.0-0.8); Eosinophils % 2.3 %; Hematocrit 35.4 % (37.0-47.0); Hemoglobin 11.1 g/dL (11.5-15.3); Lymphocytes # 2.1 10^3/uL (0.8-4.8); Lymphocytes % 23.8 %; Mean Corpuscular HGB Conc 31.4 g/dL (30.0-36.0); Mean Corpuscular Hemoglobin 27.4 pg (28.0-34.0); Mean Corpuscular Volume 87.4 fL (81-99); Mean Platelet Volume 10.7 fL (7.4-10.4); Monocytes # 0.8 10^3/uL (0.2-0.9); Monocytes % 8.9 %; Neutrophils # 5.57 10^3/uL (1.8-7.7); Neutrophils % 64.3 %; Nucleated Red Blood Cells % 0 %; Platelet Count 180 10^3/cmm (130-400); Red Blood Count 4.05 10^6/uL (4.1-5.3); Red Cell Distribution Width 17.1 % (12.1-15.1); White Blood Count 8.7 10^3/uL (4.0-10.0)
--- NOTE | 2020-09-06 12:30 | PM.OBGYPN ---
DINING ROOM CASHIER Subjective Labor: Station: -3 Amniotic Membrane Status: Intact Monitor Mode: External Contraction Pattern: Absent Vitals/I&O/Wt Last Vital Signs Temp 98.1 F 09/06/20 10:15 Pulse 68 09/06/20 12:25 BP 137/69 09/06/20 12:25 09/05/20 09/06/20 09/06/20 22:59 06:59 14:59 Intake Total 18.0 / 18.0 Balance 18.0 / 18.0 Weight last 48 hrs Weight 270 lb Weight 270 lb Weight 270 lb Physical Exam HENMT: COMMON NORMALS: normocephalic and atraumatic HEAD & SCALP: normocephalic and atraumatic FACE & SINUS: normal facial exam Eye: COMMON NORMALS: Equal, round and reactive pupils present and EOMs intact bilaterally PUPIL: Yes Equal, round and reactive pupils present GI: COMMON NORMALS: Soft to palpation (gravid) and non-tender PALPATION: Yes Soft to palpation (gravid) Extremity: GENERAL: No calf tenderness and Yes edema Data : 09/06/20 07:00 A&P Assessment and plan (1) with 38 completed weeks gestation: Patient cervix was favorable for induction and she was started on Pitocin. She is at 18 units of Pitocin and lázaro every 1 to 4 minutes but not really feeling them. I just examined her and artificially ruptured her membranes with clear fluid. Her cervical exam was 2 cm 70% effaced and -2 station. Continue expectant management Status: Acute (2) Chronic hypertension affecting : Patient is being induced at 38 weeks 5 days gestation secondary to her chronic hypertension. She has been maintained on metoprolol ER 50mg daily since approximately 32 weeks gestation. Her chronic hypertension was diagnosed early in the around 15 weeks gestation. Her pressures were mildly elevated and she did not require treatment until approximately 32 weeks gestation. She is being followed with monthly growth ultrasound and twice weekly NSTs since 34 weeks. Status: Acute Attestations Medical Necessity Statement*: Expectant management of labor and delivery Coding Level of Care Code Acute Gis Software Developer for Leena Guerin Diagnoses with 38 completed weeks gestation Z3A.38 Chronic hypertension affecting O10.919
--- NOTE | 2020-09-06 15:53 | PC.RESP ---
Smoking Cessation information sent to patient.
[2020-09-06] MEDS: fentaNYL 50 mcg/mL INJ 2mL IVP (16:36)
[2020-09-06] MEDS: lactated ringers 1,000 ML 999 ML IV ×2 (17:42→18:50)
--- NOTE | 2020-09-06 19:00 | ANES.PREANE2 ---
Pre-Anesthetic Assessment Pre-Anesthetic Assessment: Height/Weight: Height 1.57 m Weight 122.47 kg Temp Pulse Resp BP Pulse Ox 97.7 F 83 18 108/50 95 09/06/20 16:50 09/06/20 18:58 09/06/20 16:36 09/06/20 18:58 09/06/20 18:58 Preop Diagnosis: IUP Proposed Procedure: epidural Familial anesthetic complications: None Was Beta Michele taken within 24 hours: N/A Last intake: eating ice chips Social: Social History: Tobacco Exam: Pre-Anes Outpt Exam: alert, oriented x 3, clear to auscultation bilaterally and regular rate & rhythm Airway: Cervical ROM: WNL MP: 3 Dentition: Full Additional comments: large neck Metabolic: Metabolic: Morbid obesity Anesthetic Plan: ASA status: 3 Anesthesia: Regional (specify below) Risk of > 500 ml blood loss (7ml/kg in children): No Meds/Allergies Current Medications: Current Medications Generic Name Dose Route Start Last Admin Trade Name Freq PRN Reason Stop Dose Admin Fentanyl 25 - 100 mcg 09/06/20 16:26 09/06/20 16:36 Fentanyl 50 Mcg/ Ml Inj 2ml IVP 25 mcg Q1H PRN Administration SEVERE PAIN Lactated Ringer's 1,000 mls @ 999 m ls/hr 09/06/20 07:37 09/06/20 17:42 Lactated Ringers IV 999 mls/hr .Q1H1M PRN Administration Per L&D Rescitati on Protocol Oxytocin 30 unit in 500 ml s @ 1 mls/hr 09/06/20 07:45 09/06/20 13:00 Pitocin IV 20 milliunit/min .Q24H SALENA 20 mls/hr Titration Protocol 1 MILLIUNIT/MIN Dextrose/Lactated Ringer's 1,000 mls @ 125 m ls/hr 09/06/20 07:45 09/06/20 17:42 Dextrose 5%-Lact ated Ringers IV 0 mls/hr .Q8H SALENA Infusion Ropivacaine 200 mg in 100 mls @ 13 mls/hr 09/06/20 17:45 09/06/20 18:50 Naropin Premix EPIDURAL 13 mls/hr .Q7H42M SALENA Administration Lactated Ringer's 1,000 mls @ 999 m ls/hr 09/06/20 17:45 09/06/20 18:50 Lactated Ringers IV 999 mls/hr .Q1H1M PRN Administration See label comment s PFSH Anesthesia PFSH: Medical History (Updated 09/06/20 @ 12:31 by Dayana Oliva MD) Ganglion cyst state, incidental Surgical History (Updated 03/30/20 @ 14:23 by Clarence Martin DO) S/P tonsillectomy and adenoidectomy Social History Smoking and tobacco status: current every day smoker Female Reproductive History: Date of last menstrual period: 01/29/20 : 1 Data Anesthesia CBC & Chem 7: 09/06/20 07:00 Other Labs: Laboratory Results - last 48 hr 09/06/20 07:00 WBC 8.7 RBC 4.05 L Hgb 11.1 L Hct 35.4 L MCV 87.4 MCH 27.4 L MCHC 31.4 RDW 17.1 H Plt Count 180 MPV 10.7 H Neut % (Auto) 64.3 Lymph % (Auto) 23.8 Woods % (Auto) 8.9 Eos % (Auto) 2.3 Baso % (Auto) 0.2 Neut # (Auto) 5.57 Lymph # (Auto) 2.1 Woods # (Auto) 0.8 Eos # (Auto) 0.2 Baso # (Auto) 0.0 Nucleated RBC % (auto) 0 Nucleated RBCs # 0.0 Cardiac Studies: No Data to Display Anesthesia Procedures Epidural: Time Out Performed: Yes Consents Signed: Procedure Consent Consent: requested by attending/covering physician, from patient, risks and benefits reviewed and patient agrees to proceed Lumbar Level: L3-L4 Epidural position: sitting Epidural procedure: sterile prep of area, 1% lidocaine to numb the area, 18 g needle, negative for paresthesia passed, neg for paresthesia, test dose given, 1.5% xylocaine 1:200k epi (5 cc (divided dose)), 0.2% Ropivacaine bolus ml (5), placed PCEA, no systemic response, sterile dressing applied, L.U.D. no apparent complications and 0.2% Ropiavacaine @ mls/hr (13) Additional Comments: NILESH at 9 cm WITH additional pressure on needle to compress SC fat/skin. Threaded to 15 cm at skin. Patient's pain went from 8/10 to 0/10 after epidural bolus.
[2020-09-07] VITALS (63 sets, daily range): BP systolic 0–186; BP diastolic 0–89; PULSE 86–116; RESP 16–18; TEMP 36.5–38.1; O2SAT 97
[2020-09-07] MEDS: ondansetron 2 mg/ML SDV 2 mL 4 MG IVP (02:39)
[2020-09-07] MEDS: ampicillin 2,000 MG in sodium chloride 0.9% (plus) 50 ML 100 MG IV (03:35)
[2020-09-07] MEDS: dextrose 5%-lactated ringers 1,000 ML 125 ML IV (03:35)
[2020-09-07] MEDS: oxytocin 30 UNIT/500 ML BAG 600 UNIT IV (07:29)
[2020-09-07] MEDS: lidocaine 2% INJ 20 mL INJECTION (07:38)
--- NOTE | 2020-09-07 07:50 | PM.DELIVERY ---
Delivery Note: Date of delivery: September 07, 2020 Delivery: This is a 20-year-old G1, P0 at 38 weeks 5 days gestation who is being induced secondary to chronic hypertension. She was maintained during the on metoprolol 50 mg. She was GBS negative and Covid negative. Upon induction she was started on Pitocin. She had artificial rupture membranes with clear fluid noted. Rupture of membranes was approximately 20 hours prior to delivery. She received an epidural for pain management. Approximately 5 hours prior to delivery the mother began to spike a temperature. At that time she was started on ampicillin. heart tones became tachycardic in the 170s but still had moderate variability. At that point she was an anterior lip so labor was allowed to progress. She had a normal spontaneous vaginal delivery of a viable male weight 3280 g, 7 pounds 4 ounces Apgars 8 and 9 over an intact perineum. The was suctioned at delivery and placed on the mother's chest. The cord was clamped and cut. The placenta was delivered grossly intact and normal to inspection. There was a second-degree perineal laceration that was sutured using 3-0 chromic. Estimated blood loss 300 mL. Mother was doing well after delivery. A&P Assessment and plan (1) with 38 completed weeks gestation: Status: Acute (2) Chronic hypertension affecting : Status: Acute (3) Normal vaginal delivery: Routine care Status: Acute (4) Second degree perineal laceration during delivery, delivered: Status: Acute Coding Level of Care Code Acute Barrel Leveler for Leena Guerin Diagnoses with 38 completed weeks gestation Z3A.38 Chronic hypertension affecting O10.919 Normal vaginal delivery O80 Second degree perineal laceration during delivery, delivered O70.1
[2020-09-07] MEDS: acetaminophen 325 mg Tablet 650 MG PO ×2 (11:37→21:21)
[2020-09-07] MEDS: benzocaine-menthol 78 gm Canister 1 SPRAY TOPICAL (11:37)
[2020-09-07] MEDS: HYDROcodone-acetaminophen 5-325 mg Tablet PO ×2 (17:44→23:54)
[2020-09-07] MEDS: docusate sodium 100 mg Capsule PO (17:44)
[2020-09-08 04:35] VITALS: BP 108/69; PULSE 82; RESP 16; TEMP 36.6; O2SAT 97
[2020-09-08] MEDS: HYDROcodone-acetaminophen 5-325 mg Tablet PO ×3 (05:31→19:25)
[2020-09-08 07:57] LABS: Hematocrit 29.6 % (37.0-47.0); Hemoglobin 9.2 g/dL (11.5-15.3); Mean Corpuscular HGB Conc 31.1 g/dL (30.0-36.0); Mean Corpuscular Hemoglobin 27.2 pg (28.0-34.0); Mean Corpuscular Volume 87.6 fL (81-99); Mean Platelet Volume 10.5 fL (7.4-10.4); Platelet Count 160 10^3/cmm (130-400); Red Blood Count 3.38 10^6/uL (4.1-5.3); Red Cell Distribution Width 17.4 % (12.1-15.1); White Blood Count 12.3 10^3/uL (4.0-10.0)
--- NOTE | 2020-09-08 09:38 | PM.OBGYPN ---
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 Patient states that her bleeding is average to light. She does not have any complaints. Vitals/I&O/Wt Last Vital Signs Temp 97.8 F 09/08/20 04:35 Pulse 82 09/08/20 04:35 Resp 16 09/08/20 04:35 BP 108/69 09/08/20 04:35 Pulse Ox 97 09/08/20 04:35 09/07/20 09/08/20 09/08/20 22:59 06:59 14:59 Intake Total 1200 / 4816.8 Output Total 800 / 800 Balance -800 / 2816.8 1200 / 4016.8 Physical Exam Const: COMMON NORMALS: no acute distress and well nourished ORIENTATION/CONSCIOUSNESS: Yes awake and Yes oriented to person HENMT: COMMON NORMALS: normocephalic and atraumatic HEAD & SCALP: normocephalic and atraumatic Eye: COMMON NORMALS: Equal, round and reactive pupils present and EOMs intact bilaterally PUPIL: Yes Equal, round and reactive pupils present Chest: COMMONS NORMALS: normal inspection of the chest Resp: COMMON NORMALS: normal respiratory effort and clear to auscultation bilaterally AUSCULTATION: clear to auscultation bilaterally Cardio: COMMON NORMALS: regular rate and regular rhythm RATE: regular rate RHYTHM: regular rhythm GI: COMMON NORMALS: Soft to palpation PALPATION: Yes Soft to palpation, No Tenderness to palpation present (GI) and No Guarding due to palpation present (GI) Extremity: COMMON NORMALS: no calf tenderness GENERAL: Yes edema Neuro: SENSORIUM/ORIENTATION: Yes oriented to person Urinary Catheter Management^: Cassidy: Cath Placed During This Visit: yes Reason for Continuing Indwelling Catheter: Other Urinary Catheter Date of Insertion: 09/06/20 Urinary Catheter Time of Insertion: 19:30 Data : 09/08/20 07:10 A&P Assessment and plan (1) Second degree perineal laceration during delivery, delivered: Status: Acute (2) Normal vaginal delivery: Routine care, likely discharge home tomorrow Status: Acute (3) Chronic hypertension affecting : She has not required any antihypertensives . Depending on how her pressures do overnight she may not require her metoprolol upon discharge. Status: Acute (4) with 38 completed weeks gestation: Status: Acute Attestations Medical Necessity Statement*: Routine care Coding Level of Care Code Acute Death Claim Clerk for 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
[2020-09-08] MEDS: prenatal vitamin Capsule 1 CAP PO (10:01)
[2020-09-08] MEDS: docusate sodium 100 mg Capsule PO ×2 (10:01→17:25)
[2020-09-08 11:23] VITALS: BP 114/68; PULSE 83; RESP 16; TEMP 36.6; O2SAT 98
[2020-09-08 16:10] VITALS: BP 120/73; PULSE 87; RESP 18; TEMP 36.6; O2SAT 98
[2020-09-08 21:55] VITALS: BP 122/75; PULSE 87; RESP 16; TEMP 36.5; O2SAT 98
[2020-09-09] MEDS: HYDROcodone-acetaminophen 5-325 mg Tablet PO ×2 (03:47→12:44)
[2020-09-09 03:55] VITALS: BP 115/73; PULSE 81; RESP 18; TEMP 36.6; O2SAT 98
[2020-09-09] MEDS: prenatal vitamin Capsule 1 CAP PO (09:26)
[2020-09-09] MEDS: docusate sodium 100 mg Capsule PO (09:26)
[2020-09-09 09:31] VITALS: BP 124/80; PULSE 90; RESP 18; TEMP 36.9; O2SAT 98
--- NOTE | 2020-09-09 12:12 | P.DS_ITS ---
Discharge Providers DIRECTOR OF FIRST IMPRESSIONS Date of Admission: 09/06/20 06:16 Date of Discharge: 09/09/20 Attending Provider at Admission: Dayana Oliva MD Attending Provider at Discharge: Dayana Oliva MD Primary Care Provider: Dayana Oliva MD Diagnoses at Discharge Discharge Diagnosis (1) Second degree perineal laceration during delivery, delivered: Status: Acute (2) Normal vaginal delivery: Status: Acute (3) Chronic hypertension affecting : Status: Acute (4) with 38 completed weeks gestation: Status: Acute Reason for Visit Reason for Visit: induction Hospital Course Hospital Course The patient is a patient of Dr. Wells who is 20-year-old 1 at 38 weeks and 5 days who presented to the hospital for induction due to gestational hypertension. Induction was initiated with Pitocin. She had an amniotomy performed approximately 20 hours prior to delivery. She had temperature spike 5 hours prior to delivery. She was placed on ampicillin. The baby was tachycardic prior to delivery. Her delivery was unremarkable. She did have a second-degree perineal tear. Her course has been unremarkable. Her blood pressures have normalized. Her bleeding has been within normal limits. She is bottlefeeding. Initially, the patient did have some difficulty with managing her , but has since been doing very well. Information Peripartum Data: Infant Delivery Method: Vaginal Physical Exam Narrative: EXAM NARRATIVE: The patient is alert. She appears comfortable. Her heart has a regular rate and rhythm with no murmurs appreciated. Lungs are clear to auscultation bilaterally. Her fundus is firm and below the umbilicus. Urinary Catheter Management^: Cassidy: Cath Placed During This Visit: yes Reason for Continuing Indwelling Catheter: Other Urinary Catheter Date of Insertion: 09/06/20 Urinary Catheter Time of Insertion: 19:30 Discharge Data Vitals: Last Vital Signs Temp 98.5 F 09/09/20 09:31 Pulse 90 09/09/20 09:31 Resp 18 09/09/20 09:31 BP 124/80 09/09/20 09:31 Pulse Ox 98 09/09/20 09:31 Discharge Plan Discharge Patient Disposition: Home Condition: Stable Prescriptions: Continued PNV [id number] fumarate-FA [] 28 mg iron- 800 mcg Tablet 1 tab PO DAILY RF: 0 cetirizine 10 mg Tablet 10 mg PO DAILY RF: 0 Discontinued folic acid 800 mcg Tablet 0.8 mg PO DAILY RF: 0 metoprolol succinate 50 mg Tablet Extended Release 24 Hr 50 mg PO DAILY RF: 0 Discharge Orders: Discharge Order (Routine); Ordered 09/09/20 Ordered By: Ajay Muniz Referrals: Dayana Oliva MD [Primary Care Provider] - 1 month Ajya Muniz MD [Physician] - Discharge Diet: Usual diet Discharge Activity: Limit activity as instructed Patient Instructions: Hemorrhoids, OB Discharge Report, OB Food/Drug Interaction Guide, OB Care at Home, OB Vaginal Deliveries Activity Restrictions/Additional Instructions: May take OTC tylenol for pain Discharge Attestations DIRECTOR OF FIRST IMPRESSIONS Time Spent in Discharge Care*: less than 30 min Coding Level of Care Code Acute 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
[2020-09-09 12:20] VITALS: BP 119/74; PULSE 96; RESP 17; TEMP 36.7; O2SAT 98
== END 2020-09-09 12:50 | disposition home or self-care (01) | DRG 807 ==
PROVIDERS: Admitting Provider Family Medicine; PCP Family Medicine; Visit Provider Family Medicine
DX: O10.92 Unspecified pre-existing hypertension complicating childbirth (principal); Z37.0 Single live birth; O99.214 Obesity complicating childbirth; E66.01 Morbid (severe) obesity due to excess calories; O99.334 Smoking (tobacco) complicating childbirth; F17.210 Nicotine dependence, cigarettes, uncomplicated; O70.1 Second degree perineal laceration during delivery; Z3A.38 38 weeks gestation of pregnancy; O10.919 Unspecified pre-existing hypertension complicating pregnancy, unspecified trimester
CPT/HCPCS: 12345; 36415; 51702; 59025; 59409; 85025; 85027; 96374; 96375; J0290; J2405; J2795; J3010

== ENCOUNTER → 2021-11-13 16:45 | Outpatient (BNVA) | payer MEDICAID, SELFPAY | PROVIDERS: PCP Family Medicine; Visit Provider Family Medicine | DX: M54.16 Radiculopathy, lumbar region (principal); Z76.89 Persons encountering health services in other specified circumstances; M54.50 Low back pain, unspecified | CPT/HCPCS: 80053; 80061; 81025; 84439; 84443; 85025 ==

== ENCOUNTER 2021-11-15 12:22 | Outpatient (CLI) | payer MEDICAID, SELFPAY ==
--- NOTE | 2021-11-15 12:38 | XRR_ITS ---
PROCEDURE INFORMATION: Exam: XR Thoracic Spine Exam date and time: 11/15/2021 12:38 PM Age: 21 years old Clinical indication: Pain in thoracic spine; With radiculopathy; Additional info: Mid back pain with radiculopathy. TECHNIQUE: Imaging protocol: XR of the thoracic spine. Views: 3 views. COMPARISON: CR Chest 2 views* [id number] 06/16/2016 12:26 PM FINDINGS: Bones/joints: Normal. No acute fracture. Normal alignment. Soft tissues: Unremarkable. XR/XR thoracic spine 2V [id number] IMPRESSION: Unremarkable radiographs of the thoracic spine.
--- NOTE | 2021-11-15 12:38 | XRR_ITS ---
PROCEDURE INFORMATION: Exam: XR Lumbosacral Spine Exam date and time: 11/15/2021 12:38 PM Age: 21 years old Clinical indication: Low back pain; Additional info: Lumbar back pain with radiculopathy. TECHNIQUE: Imaging protocol: XR of the lumbosacral spine. Views: 2 or 3 views. COMPARISON: [place] [id number] 06/04/2020 9:16 AM FINDINGS: Bones/joints: Normal. No acute fracture. Normal alignment. Soft tissues: Unremarkable. XR/XR lumbar spine 2-3V* [id number] IMPRESSION: Unremarkable radiographs of the lumbar spine.
== END 2021-11-15 12:23 | disposition home or self-care (01) ==
LOC: RAD 12:33
PROVIDERS: PCP Family Medicine; Visit Provider Family Medicine
DX: M54.50 Low back pain, unspecified (principal); M54.16 Radiculopathy, lumbar region
CPT/HCPCS: 72070; 72100

== ENCOUNTER → 2022-05-07 15:18 | Outpatient (BNVA) | payer MEDICAID, SELFPAY | PROVIDERS: PCP Family Medicine; Visit Provider Family Medicine | DX: E03.9 Hypothyroidism, unspecified (principal) | CPT/HCPCS: 84443 ==

== ENCOUNTER → 2022-12-08 09:27 | Outpatient (BNVA) | payer MEDICAID, SELFPAY | PROVIDERS: PCP Family Medicine; Referring Provider Family Medicine; Visit Provider Specialist | DX: G56.03 Carpal tunnel syndrome, bilateral upper limbs (principal) | CPT/HCPCS: 73110 ==

== ENCOUNTER 2022-12-26 06:35 | Day surgery (SDC) | payer MEDICAID, SELFPAY ==
[2022-12-25 08:58] VITALS: BMI 45.8
[2022-12-26 06:50] VITALS: BP 167/90; PULSE 88; RESP 16; TEMP 36.3; O2SAT 97
[2022-12-26 07:02] LABS: OR HCG Qualitative Urine Negative (Negative)
--- NOTE | 2022-12-26 07:07 | P.HPUD_ITS ---
Surgery/Procedure H&P Update DATE OF PROCEDURE: December 26, 2022 DATE H&P PERFORMED: 12/08/22 H&P UPDATE INFORMATION: I have reviewed H&P completed within last 30 days, I have examined patient prior to procedure, No changes to prior documentation and [place] is [place] [facility] [place] indicated PREOP DIAGNOSIS: Right carpal tunnel syndrome PLANNED PROCEDURE: Operation Date: 12/26/22 08:15 Proposed Procedures p RIGHT CARPAL TUNNEL RELEASE [id number], G56.00(Right) - Jill Lynne MD Related Problem List Diagnoses (1) Carpal tunnel syndrome on right:
[2022-12-26] MEDS: CELEcoxib 200 mg Capsule 400 MG PO (07:20)
--- NOTE | 2022-12-26 07:20 | P.ANESASSM_ITS ---
Pre-Anesthetic Assessment Height/Weight: Height 1.57 m Weight 113.852 kg Temp Pulse Resp BP Pulse Ox O2 Del Method 97.4 F L 88 16 167/90 97 12/26/22 06:50 12/26/22 06:50 12/26/22 06:50 12/26/22 06:50 12/26/22 06:50 12/26/22 06:50 Preop Diagnosis: Right carpal tunnel syndrome Operation Date: 12/26/22 08:15 Proposed Procedures p RIGHT CARPAL TUNNEL RELEASE [id number], G56.00(Right) - Jill Lynne MD Familial anesthetic complications: none Was Beta Michele taken within 24 hours: N/A Was Clonidine taken within 24 hours: N/A Last intake: Intake Last Liquid Date 12/25/22 Last Liquid Time 23:00 Last Solid Date 12/25/22 Last Solid Time 23:00 Last Intake: 23:00 Social No alcohol and No tobacco Exam alert, oriented x 3, clear to auscultation bilaterally and regular rate & rhythm Airway Submandibular: within normal limits Cervical ROM: within normal limits Mallampati: Class II Dentition: full Pulmonary None reported CV/HEM None reported None reported Hepatic None reported GI Gastroesophageal Reflux Disease (food related) Metabolic Morbid Obesity Musc/skel Lower Back Pain and Scoliosis Neuropsych Anxiety and Depression Anesthetic Plan ASA status: 2 Anesthesia: General Risk of > 500 ml blood loss (7ml/kg in children): No Medications/Allergies Home Medications Medication Instructions Recorded Confirmed Last Taken Type No Known Home Medications 11/04/22 12/26/22 Unknown History Allergies Allergy/AdvReac Type Severity Reaction Status Date / Time naproxen Allergy Unknown Verified 12/26/22 06:45 Sulfa (Sulfonamide Allergy Unknown Verified 12/26/22 06:45 Antibiotics) [facility] Anesthesia Medical History Ganglion cyst state, incidental Surgical History S/P tonsillectomy and adenoidectomy Social History Smoking and tobacco status: never smoked Alcohol intake: current Alcohol intake frequency: holidays/special occasions only Female Reproductive History Date of last menstrual period: 12/12/22 Data Anesthesia Cardiac Studies: No Data to Display
[2022-12-26] MEDS: acetaminophen 1,000 MG/100 ML PIGGYBACK 400 MG IV (07:25)
[2022-12-26] MEDS: gabapentin 300 mg Capsule PO (07:25)
[2022-12-26] MEDS: sodium chloride 0.9% 1,000 ML 30 ML IV (07:26)
[2022-12-26] MEDS: ceFAZolin 2,000 MG in sodium chloride 0.9% (plus) 50 ML 100 MG IV (08:05)
--- NOTE | 2022-12-26 08:46 | P.OP_ITS ---
Operative Report Date of procedure: December 26, 2022 Pre-op diagnosis: Right carpal tunnel syndrome Post-op diagnosis: Right carpal tunnel syndrome Post-op findings: Purplish discoloration and significant compression across the median nerve consistent with carpal tunnel syndrome Procedure done: Right carpal tunnel release Surgeon: Jill Lynne Marketing Project Manager: None Anesthesia: General (Per LMA, ASA 2) Estimated blood loss (mL): 5 Tourniquet time (min): 13 (At 250 mmHg) IV fluids (mL): 400 Urine output (mL): 0 (No Cassidy) Complications: None Condition: stable Disposition: PACU (Then return to same-day surgery for discharge to home) Brief History: This is a new 22 year old female patient here today for right carpal tunnel release. Patient states that the hands have been causing her issues for ap proximately a year. Patient has numbness and tingling to both left and right hand. Patient states that she feels she is having decreased head well puller strength as well as drops things frequently. Patient states the right thumb is completely numb constantly while the the other fingers are intermittent. Preoperative studies were consistent with carpal tunnel syndrome, and the patient was consented in the office for carpal tunnel release. Questions were answered. Consents were signed. Procedure: The patient was brought to the operating theater. The patient had a general anesthesia per LMA. The tourniquet was elevated to 250 mmHg for a total tourniquet time of 13 minutes. The patient was also given Ancef 2 g preoperatively. The arm was then prepped and draped with DuraPrep in usual fashion with the arm draped free. A surgical pause was performed. At the time, the surgical pause, we confirmed the site and side of surgery. We also confirmed the patient's identity, appropriate and timely administration of preoperative antibiotics and preoperative surgical markings. An incision was then made along the thenar crease. The incision crossed the wri st joint in a curvilinear fashion. Dissection continued through skin and soft tissues using a scalpel. The palmaris longus was identified along with the transverse carpal ligament. Each of these was released carefully to avoid injury to the median nerve. We were able to dissect gently into the carpal canal which was noted to be quite tight with significant compression across the median nerve. The nerve was visualized and was an hourglass shape with purplish discoloration. The canal was subsequently palpated to assure there was no bony encroachment upon the nerve. There was a quite thickened fibrous tissue within the canal, and this was opened longitudinally as well. The canal was then palpated distally and proximally to assure that my small finger was passed easily without impingement. Finding this to be so, attention was directed to closure. The wound was irrigated with ropivacaine plain. It was then closed with 3-0 nylon in an interrupted mattress fashion. Sterile dressing was then placed consisting of Dermabond, OpSite, sterile soft roll, and an Jose E wrap. The tourniquet was released after 13 minutes. There were no complications. There were no specimens. The procedure was well tolerated. Plan is the patient will be discharged home. Related Problem List Diagnoses (1) Carpal tunnel syndrome on right:
[2022-12-26 08:52] VITALS: BP 149/85; PULSE 90; RESP 14; TEMP 36.1; O2SAT 100
[2022-12-26 08:58] VITALS: BP 158/88; PULSE 83; RESP 14; TEMP 36.3; O2SAT 95
[2022-12-26 09:00] VITALS: BP 164/102; PULSE 84; RESP 15; TEMP 36.6; O2SAT 97
[2022-12-26] MEDS: HYDROcodone-acetaminophen 5-325 mg Tablet 1 TAB PO (09:14)
[2022-12-26 09:15] VITALS: BP 170/101; PULSE 80; RESP 16; O2SAT 98
--- NOTE | 2022-12-26 12:24 | ANE.PACU2 ---
Inpatient post-anesthesia follow up: Airway intact: Yes Vital signs: Temperature 98 F Pulse Rate 80 Respiratory Rate 16 Blood Pressure 170/101 Pulse Oximetry 98 Oxygen Delivery Me thod Room Air Oxygen Flow Rate Fraction of Inspir ed Oxygen Hydration adequate: Yes Nausea and vomiting: No Pain level: 1 Mental status: Baseline
== END 2022-12-26 09:35 | disposition home or self-care (01) ==
PROVIDERS: PCP Family Medicine; Visit Provider Specialist
PROC: (CPT 64721; principal; 2022-12-26 08:05)
DX: G56.03 Carpal tunnel syndrome, bilateral upper limbs (principal); K21.9 Gastro-esophageal reflux disease without esophagitis; E66.01 Morbid (severe) obesity due to excess calories; Z68.42 Body mass index [BMI] 45.0-49.9, adult; Z88.2 Allergy status to sulfonamides
CPT/HCPCS: 64721; 81025; 84703; 97165; J0131; J0690; J2405; J2704; J3010; J3490; J7030; L3908

== ENCOUNTER 2023-02-27 05:37 | Day surgery (SDC) | payer MEDICAID, SELFPAY ==
[2023-02-26 07:58] VITALS: BMI 47.9
[2023-02-27] VITALS (14 sets, daily range): BP systolic 130–240; BP diastolic 75–118; PULSE 79–95; RESP 16–20; TEMP 36.4–36.6; O2SAT 94–97
[2023-02-27] MEDS: acetaminophen 1,000 MG/100 ML PIGGYBACK 400 MG IV (06:15)
[2023-02-27] MEDS: sodium chloride 0.9% 1,000 ML 30 ML IV (06:27)
[2023-02-27 06:35] LABS: OR HCG Qualitative Urine Negative (Negative)
--- NOTE | 2023-02-27 06:45 | P.HPUD_ITS ---
Surgery/Procedure H&P Update DATE OF PROCEDURE: February 27, 2023 DATE H&P PERFORMED: 02/02/23 H&P UPDATE INFORMATION: I have reviewed H&P completed within last 30 days, I have examined patient prior to procedure, No changes to prior documentation and H&P is in [facility] [place] on date indicated PREOP DIAGNOSIS: Left carpal tunnel syndrome PLANNED PROCEDURE: Operation Date: 02/27/23 07:00 Proposed Procedures p LEFT CARPAL TUNNEL RELEASE [id number],G56.00(Left) - Jill Lynne MD Related Problem List Diagnoses (1) Carpal tunnel syndrome, left:
[2023-02-27] MEDS: ceFAZolin 2,000 MG in sodium chloride 0.9% (plus) 50 ML 100 MG IV (07:02)
--- NOTE | 2023-02-27 07:14 | ANES.PREANE2 ---
Pre-Anesthetic Assessment Height/Weight: Height 1.55 m Weight 115.212 kg Temp Pulse Resp BP Pulse Ox O2 Del Method 97.6 F 83 18 130/75 97 Room Air 02/27/23 06:30 02/27/23 06:30 02/27/23 06:30 02/27/23 06:30 02/27/23 06:30 02/27/23 06:30 Preop Diagnosis: Left carpal tunnel syndrome Operation Date: 02/27/23 07:00 Proposed Procedures p LEFT CARPAL TUNNEL RELEASE [id number],G56.00(Left) - Jill Lynne MD Familial anesthetic complications: none Was Beta Michele taken within 24 hours: N/A Was Clonidine taken within 24 hours: N/A Last intake: Intake Last Liquid Date 02/26/23 Last Liquid Time 22:00 Last Solid Date 02/26/23 Last Solid Time 20:30 Social No alcohol and No tobacco Exam alert, oriented x 3, clear to auscultation bilaterally and regular rate & rhythm Airway Submandibular: within normal limits Cervical ROM: within normal limits Mallampati: Class II Dentition: full Metabolic Morbid Obesity and Thyroid Disease Anesthetic Plan ASA status: 3 Anesthesia: Choice Medications/Allergies Home Medications Medication Instructions Recorded Confirmed Last Taken Type fluticasone propionate 50 1 spray intranasal Q12H PRN 02/18/23 02/26/23 Unknown Rx mcg/actuation nasal allergy symptoms #16 grams spray,suspension (Flonase Allergy Relief) Allergies Allergy/AdvReac Type Severity Reaction Status Date / Time naproxen Allergy Unknown Verified 02/18/23 13:15 Sulfa (Sulfonamide Allergy Unknown Verified 02/18/23 13:15 Antibiotics) Current Medications Generic Name Dose Route Start Last Admin Trade Name Freq PRN Reason Stop Dose Admin Sodium Chloride 1,000 mls @ 30 mls/hr 02/27/23 06:00 02/27/23 06:27 Sodium Chloride 0.9% IV 02/28/23 05:59 30 mls/hr .Q24H SALENA Administration PFSH Anesthesia Medical History Ganglion cyst state, incidental Surgical History S/P tonsillectomy and adenoidectomy Social History Smoking and tobacco status: never smoked Alcohol intake: current Alcohol intake frequency: holidays/special occasions only Substance/Drug Use: never Female Reproductive History Date of last menstrual period: 01/26/23 Data Anesthesia Cardiac Studies: No Data to Display
[2023-02-27] MEDS: fentaNYL 50 mcg/mL INJ 2mL IVP (08:11)
--- NOTE | 2023-02-27 08:18 | PM.OP ---
Operative Report Date of procedure: February 27, 2023 Pre-op diagnosis: Left carpal tunnel syndrome Post-op diagnosis: Left carpal tunnel syndrome Post-op findings: Severe and significant hourglass deformity to the median nerve Procedure done: Left carpal tunnel release Pathology: none sent Surgeon: Jill Lynne [employer] Engine Specialist: None Anesthesia: General (Per LMA, ASA 2) Estimated blood loss (mL): 1 Tourniquet time (min): 22 (At 250 mmHg) IV fluids (mL): 300 Urine output (mL): 0 (No Cassidy) Complications: None Findings: Findings consistent with severe carpal tunnel syndrome Condition: stable Disposition: PACU (Then return to same-day surgery for discharge to home) Brief History: This is a 22 year old female patient here today for left carpal tunnel release. Patient states that the hands have been causing her issues for approximately a year. Upon initial presentation, the patient had bilateral carpal tunnel syndrome. She has recovered nicely from right carpal tunnel release in December of this year. The patient states that she feels she is having decreased damage inside adjuster strength as well as drops things frequently.? Preoperative studies were consistent with carpal tunnel syndrome, and the patient was consented in the office for left carpal tunnel release.? Questions were answered.? Consents were signed. Procedure: The patient was brought to the operating theater. The patient had a general anesthesia per LMA. The tourniquet was elevated to 250 mmHg for a total tourniquet time of 22 minutes. The patient was also given Ancef 2 g preoperatively. The arm was then prepped and draped with DuraPrep in usual fashion with the arm draped free. A surgical pause was performed. At the time, the surgical pause, we confirmed the site and side of surgery. We also confirmed the patient's identity, appropriate and timely administration of preoperative antibiotics and preoperative surgical markings. An incision was then made along the thenar crease. The incision crossed the wrist joint in a curvilinear fashion. Dissection continued through skin and soft tissues using a scalpel. The palmaris longus was identified along with the transverse carpal ligament. Each of these was released carefully to avoid injury to the median nerve. We were able to dissect gently into the carpal canal which was noted to be quite tight with significant compression across the median nerve. The nerve was visualized and was an hourglass shape with significant purplish discoloration. The canal was subsequently palpated to assure there was no bony encroachment upon the nerve. There was a quite thickened fibrous tissue within the canal, and this was opened longitudinally as well. The canal was then palpated distally and proximally to assure that my small finger was passed easily without impingement. Finding this to be so, attention was directed to closure. The wound was irrigated with ropivacaine plain. It was then closed with 3-0 nylon in an interrupted mattress fashion. Sterile dressing was then placed consisting of Dermabond, OpSite, sterile soft roll, and an Jose E wrap. The tourniquet was released after 22 minutes. There were no complications. There were no specimens. The procedure was well tolerated. Plan is the patient will be discharged home. Related Problem List Diagnoses (1) Carpal tunnel syndrome, left:
[2023-02-27] MEDS: hyDRALAzine 20 mg/mL INJ 1 mL (08:36)
[2023-02-27] MEDS: ondansetron 2 mg/ML SDV 2 mL 4 MG IVP (09:24)
--- NOTE | 2023-02-27 14:29 | ANE.PACU2 ---
Inpatient post-anesthesia follow up: Airway intact: Yes Vital signs: Temperature 97.8 F Pulse Rate 88 Respiratory Rate 18 Blood Pressure 146/88 Pulse Oximetry 95 Oxygen Delivery Me thod Room Air Oxygen Flow Rate Fraction of Inspir ed Oxygen Hydration adequate: Yes Nausea and vomiting: No Pain level: 2 Mental status: Baseline
== END 2023-02-27 09:30 | disposition home or self-care (01) ==
PROVIDERS: Anesthesiology; PCP Family Medicine; Visit Provider Specialist
PROC: (CPT 64721; principal; 2023-02-27 07:00)
DX: G56.02 Carpal tunnel syndrome, left upper limb (principal); E66.01 Morbid (severe) obesity due to excess calories; Z68.42 Body mass index [BMI] 45.0-49.9, adult; E03.9 Hypothyroidism, unspecified
CPT/HCPCS: 64721; 81025; 84703; J0131; J0360; J0690; J1100; J1885; J2405; J3010; J3490; J7030

== ENCOUNTER → 2023-04-05 10:30 | Outpatient (BNVA) | payer MEDICAID, SELFPAY | PROVIDERS: PCP Family Medicine; Visit Provider Emergency Medicine | DX: O26.90 Pregnancy related conditions, unspecified, unspecified trimester (principal); Z3A.00 Weeks of gestation of pregnancy not specified | CPT/HCPCS: 81025 ==

== ENCOUNTER → 2023-06-23 14:16 | Outpatient (BNVA) | payer MEDICAID, SELFPAY | PROVIDERS: PCP Family Medicine; Visit Provider Registered Nurse Neonatal Intensive Care | DX: R05.9 Cough, unspecified (principal); Z20.822 Contact with and (suspected) exposure to COVID-19 | CPT/HCPCS: 87426 ==

== ENCOUNTER 2023-06-24 13:00 | Emergency (ER) | payer MEDICAID, SELFPAY ==
[2023-06-24 13:03] VITALS: BP 156/93; PULSE 96; RESP 15; TEMP 37.3; O2SAT 96
--- NOTE | 2023-06-24 13:47 | W.ED.HA ---
HPI - Headache General: Chief Complaint: Headache Stated Complaint: headache Time Seen by Provider: 06/24/23 13:36 Source: patient Mode of arrival: ambulatory History of Present Illness: 22-year-old female presents emergency room with complaint of headache for the last 4 days. She reports in the bilateral frontal region is throbbing in nature she has tried ibuprofen and Excedrin with no relief. MD elicited complaint: headache Onset (ago): day(s) Location: frontal Severity: moderate Quality & Timing: throbbing Exacerbating factors: light and noise Relieving factors: nothing Associated symptoms: Deny chest pain, confusion, cough, diaphoresis, eye pain, eye redness, fever(s), lightheadedness, loss of vision, malaise, nausea, neck stiffness, numbness, paresthesias, photophobia, pre-syncope, rash, seizures, short of breath, sound sensitivity, syncope, vomiting or weakness Review of Systems Const: Denies: fever(s), malaise or diaphoresis Card: Denies: chest pain, lightheadedness, syncope or pre-syncope GI: Denies: abdominal pain, nausea or vomiting Skin/Breast: Denies: rash Neuro: Denies: confusion PFSH ED PFSH: Medical History Ganglion cyst state, incidental Surgical History S/P tonsillectomy and adenoidectomy Social History Smoking and tobacco status: never smoked Alcohol intake: current Alcohol intake frequency: holidays/special occasions only Substance/Drug Use: never Physical Exam Const: COMMON NORMALS: no acute distress GENERAL APPEARANCE: cooperative and comfortable ORIENTATION/CONSCIOUSNESS: Yes awake, Yes oriented to person, Yes oriented to place and Yes oriented to time HENMT: COMMON NORMALS: normocephalic, atraumatic and hearing grossly normal bilaterally HEAD & SCALP: normocephalic and atraumatic Eye: DIRECT OPHTHALMOSCOPY: No photophobia Resp: COMMON NORMALS: normal respiratory effort, No retractions, No use of accessory muscles and clear to auscultation bilaterally AUSCULTATION: clear to auscultation bilaterally Cardio: COMMON NORMALS: regular rate, regular rhythm and No murmurs present (Cardio) RATE: regular rate RHYTHM: regular rhythm GI: COMMON NORMALS: Soft to palpation and No hepatosplenomegaly present AUSCULTATION: Yes normoactive bowel sounds PALPATION: Yes Soft to palpation, No Tenderness to palpation present (GI), No Guarding due to palpation present (GI) and Yes No hepatosplenomegaly present Extremity: COMMON NORMALS: normal to inspection, capillary refill normal, no clubbing, cyanosis or edema, no calf tenderness and no pedal edema Neuro: SENSORIUM/ORIENTATION: Yes oriented to person, Yes oriented to place and Yes oriented to time Skin: COMMON NORMALS: no rashes or lesions noted GENERAL SKIN EXAM: no rashes or lesions noted Course Vital Signs: Vital signs: Vital Signs Temperature 99.1 F 06/24/23 13:03 Pulse Rate 91 06/24/23 15:07 Respiratory Rate 15 06/24/23 13:03 Blood Pressure 156/93 06/24/23 13:03 Pulse Oximetry 96 06/24/23 15:07 Oxygen Delivery Me thod Room Air 06/24/23 15:07 MDM - Headache Medical Decision Making Liver enzymes elevated ultrasound gallbladder normal COVID negative. Tick panel pending. Discharge patient home with promethazine to use for breakthrough headaches and nausea. She should have liver functions rechecked in the next 2 to 3 weeks return if is worsening or change problems Medical Records I reviewed the patient's medical records. Lab Data I reviewed the patient's lab results. 06/24/23 13:50 06/24/23 13:50 Laboratory Results WBC 7.17 10^3/uL (3.29-11.43) 06/24/23 13:50 RBC 3.84 10^6/uL (3.85-5.65) L 06/24/23 13:50 Hgb 12.00 g/dL (11.27-16.99) 06/24/23 13:50 Hct 37.2 % (36-47) 06/24/23 13:50 MCV 96.9 fl (85-98) 06/24/23 13:50 MCH 31.3 pg (27-33) 06/24/23 13:50 MCHC 32.3 g/dL (30-55) 06/24/23 13:50 RDW 13.7 % (12.1-15.1) 06/24/23 13:50 Plt Count 193 10^3/cmm (157-399) 06/24/23 13:50 MPV 9.7 fL (7.4-10.4) 06/24/23 13:50 Neut % (Auto) 67.4 % 06/24/23 13:50 Lymph % (Auto) 22.7 % 06/24/23 13:50 [place] % (Auto) 7.4 % 06/24/23 13:50 Eos % (Auto) 1.7 % 06/24/23 13:50 Baso % (Auto) 0.4 % 06/24/23 13:50 Neut # (Auto) 4.83 10^3/uL (1.8-7.7) 06/24/23 13:50 Lymph # (Auto) 1.6 10^3/uL (0.8-4.8) 06/24/23 13:50 [place] # (Auto) 0.5 10^3/uL (0.2-0.9) 06/24/23 13:50 Eos # (Auto) 0.1 10^3/uL (0.0-0.8) 06/24/23 13:50 Baso # (Auto) 0.0 10^3/uL (0.0-0.1) 06/24/23 13:50 Nucleated RBC % (auto) 0 % 06/24/23 13:50 Nucleated RBCs # 0.0 /100WBC 06/24/23 13:50 Sodium 138 mmol/L (136-145) 06/24/23 13:50 Potassium 4.0 mmol/L (3.5-5.1) 06/24/23 13:50 Chloride 100 mmol/L (98-107) 06/24/23 13:50 Carbon Dioxide 26 mmol/L (22-29) 06/24/23 13:50 Anion Gap 16.0 (5-19) 06/24/23 13:50 BUN 7 mg/dL (6-20) 06/24/23 13:50 Creatinine 0.6 mg/dL (0.5-0.9) 06/24/23 13:50 GFR Calculation 122.8 mL/min (90-130) 06/24/23 13:50 Glucose 122 mg/dL (65-115) H 06/24/23 13:50 Calculated Osmolality 285 mOsm/kg (285-295) 06/24/23 13:50 Calcium 9.7 mg/dL (8.5-10.5) 06/24/23 13:50 Total Bilirubin 1.1 mg/dL (0.15-1.2) 06/24/23 13:50 AST 247 U/L (0-32) H 06/24/23 13:50 ALT 114 U/L (0-33) H 06/24/23 13:50 Alkaline Phosphatase 156 U/L (35-105) H 06/24/23 13:50 Total Protein 7.6 g/dL (6.6-8.7) 06/24/23 13:50 Albumin 4.5 g/dL (3.5-5.2) 06/24/23 13:50 Globulin 3.1 g/dL (1.3-4.6) 06/24/23 13:50 HCG, Qual Negative (Negative) 06/24/23 13:50 Lyme Ab (Western Blot) <0.90 index 06/24/23 15:30 Coronavirus 229E (PCR) Not detected (NOT DETECT) 06/24/23 15:40 Hepatitis A IgM Ab Non-reactive (Nonreactive) 06/24/23 13:50 Hep Bs Antigen Non-reactive (Nonreactive) 06/24/23 13:50 Hep B Core IgM Ab Non-reactive (Nonreactive) 06/24/23 13:50 Hepatitis C Antibody Non-reactive (Nonreactive) 06/24/23 13:50 SARS-CoV-2 (PCR) Not detected (NOT DETECT) 06/24/23 15:40 Discharge Plan Discharge Patient Disposition: Home Clinical Impression: Headache, Elevated liver enzymes Condition: Stable Prescriptions: New promethazine 25 mg tablet 25 mg PO Q6H PRN (Reason: headache) Qty: 20 0RF No Action ibuprofen 200 mg Capsule 800 mg PO Q6H PRN (Reason: Pain) Excedrin Migraine 250-250-65 mg Tablet 2 tab PO Q6H PRN (Reason: Pain) Discharge Orders: Discharge ED (Routine); Ordered 06/24/23 Ordered By: Clarence Martin Referrals: Dayana Oliva MD [Primary Care Provider] - Discharge Diet: Usual diet Discharge Activity: Resume usual activity Patient Instructions: Opioid Safety, Pain Management Activity Restrictions/Additional Instructions: You were seen today for headache you are noted to have elevated liver enzymes on your lab work. We did do a COVID and a tick panel on you with the gallbladder ultrasound as well as the hepatitis panel were negative. You can use promethazine as needed for headaches. Your liver enzymes should be rechecked within the next month if these tests are negative. If your symptoms worsen persist or change follow-up with your primary care doctor to reevaluate. Coding Level of Care Code ED Collection Clerk for Leena Guerin
[2023-06-24] MEDS: sodium chloride 0.9% 1,000 ML 999 ML IV (13:53)
[2023-06-24 13:54] LABS: Basophils % 0.4 %; Eosinophils # 0.1 10^3/uL (0.0-0.8); Eosinophils % 1.7 %; Hematocrit 37.2 % (36-47); Lymphocytes # 1.6 10^3/uL (0.8-4.8); Lymphocytes % 22.7 %; Mean Corpuscular HGB Conc 32.3 g/dL (30-55); Mean Corpuscular Hemoglobin 31.3 pg (27-33); Mean Corpuscular Volume 96.9 fl (85-98); Mean Platelet Volume 9.7 fL (7.4-10.4); Monocytes # 0.5 10^3/uL (0.2-0.9); Monocytes % 7.4 %; Neutrophils # 4.83 10^3/uL (1.8-7.7); Neutrophils % 67.4 %; Nucleated Red Blood Cells % 0 %; Platelet Count 193 10^3/cmm (157-399); Red Blood Count 3.84 10^6/uL (3.85-5.65); Red Cell Distribution Width 13.7 % (12.1-15.1); White Blood Count 7.17 10^3/uL (3.29-11.43)
[2023-06-24] MEDS: promethazine 25 mg/mL SDV 1 mL IM (13:54)
[2023-06-24] MEDS: ketorolac 30 mg/mL INJ IVP (14:12)
[2023-06-24 14:18] LABS: Alanine Aminotransferase 114 U/L (0-33); Albumin Level 4.5 g/dL (3.5-5.2); Alkaline Phosphatase 156 U/L (35-105); Aspartate Amino Transferase 247 U/L (0-32); Blood Urea Nitrogen 7 mg/dL (6-20); Calcium 9.7 mg/dL (8.5-10.5); Carbon Dioxide 26 mmol/L (22-29); Chloride 100 mmol/L (98-107); Globulin 3.1 g/dL (1.3-4.6); Glomerular Filtration Rate 122.8 mL/min (90-130); Glucose 122 mg/dL (65-115); HCG, Serum Qual Negative (Negative); Osmolality Calculated 285 mOsm/kg (285-295); Sodium 138 mmol/L (136-145); Total Bilirubin 1.1 mg/dL (0.15-1.2); Total Protein 7.6 g/dL (6.6-8.7)
--- NOTE | 2023-06-24 14:23 | US_ITS ---
WS: [id number] RIGHT UPPER QUADRANT ULTRASOUND HISTORY: elevated transaminases COMPARISON: None available. Liver: 25.8 cm in length. Markedly enlarged liver. Variable echogenicity throughout the liver. No dis crete mass. Portal Vein: Low portal vein waveform. There is also slight reversal of the waveform. Gallbladder: Normally distended gallbladder with no stones or wall thickening. CBD: 0.6 cm Pancreas: Poorly visualized. Right kidney: 12.8 cm in length. Normal size and echogenicity. No hydronephrosis or mass. Aorta and IVC: Unremarkable abdominal aorta and IVC. No ascites. IMPRESSION: 1. Marked hepatomegaly with hepatic steatosis. There is marked heterogeneity throughout the liver but no mass. 2. Normal gallbladder.
[2023-06-24 14:59] LABS: Hepatitis A Antibody IgM Non-Reactive (Nonreactive); Hepatitis B Core IgM Non-Reactive (Nonreactive); Hepatitis B Surface Antigen Non-Reactive (Nonreactive); Hepatitis C Virus Antibody Non-Reactive (Nonreactive)
[2023-06-24 15:07] VITALS: PULSE 91; O2SAT 96
[2023-06-24 17:30] LABS: Adenovirus Not Detected (NOT DETECT); Chlamydia Pneumoniae Not Detected (NOT DETECT); Coronavirus 229E,HKU1,NL63,OC4 Not Detected (NOT DETECT); Human Metapneumovirus Not Detected (NOT DETECT); Human Rhinovirus/Enterovirus Not Detected (NOT DETECT); Influenza A Not Detected (NOT DETECT); Influenza A H1 Not Detected (NOT DETECT); Influenza A H1-2009 Not Detected (NOT DETECT); Influenza A H3 Not Detected (NOT DETECT); Influenza B Not Detected (NOT DETECT); Mycoplasma Pneumoniae Not Detected (NOT DETECT); Parainfluenza Virus Type 1 Not Detected (NOT DETECT); Parainfluenza Virus Type 2 Not Detected (NOT DETECT); Parainfluenza Virus Type 3 Not Detected (NOT DETECT); Parainfluenza Virus Type 4 Not Detected (NOT DETECT); Respiratory Syncytial Virus A Not Detected (NOT DETECT); Respiratory Syncytial Virus B Not Detected (NOT DETECT); SARS-COV-2 Not Detected (NOT DETECT)
[2023-06-25 14:30] LABS: Lyme AB Screen <0.90 index
[2023-06-29 17:19] LABS: E. Chaffeensis AB IGG <1:64; E. Chaffeensis AB IGM <1:20
[2023-06-30 16:14] LABS: RMSF IGG NOT DETECTED; RMSF IGM NOT DETECTED
== END 2023-06-24 16:19 | disposition home or self-care (01) ==
PROVIDERS: Emergency Provider Family Medicine; PCP Family Medicine
DX: R51.9 Headache, unspecified (principal); R74.8 Abnormal levels of other serum enzymes; Z20.822 Contact with and (suspected) exposure to COVID-19
CPT/HCPCS: 76705; 80053; 80074; 84703; 85025; 86618; 86666; 86757; 87635; 96361; 96372; 96374; 99284; J1885; J2550; J7030

== ENCOUNTER 2023-10-02 14:27 | Emergency (ER) | payer MEDICAID, SELFPAY ==
[2023-10-02 14:30] VITALS: BP 146/88; PULSE 92; RESP 18; TEMP 36.5; O2SAT 96; BMI 44.6
--- NOTE | 2023-10-02 14:36 | ED_ITS ---
HPI - Epistaxis General: Chief complaint: Epistaxis Stated complaint: nose bleed Time Seen by Provider: 10/02/23 14:35 Source: patient Mode of arrival: ambulatory Limitations: no limitations History of Present Illness: Patient is a 23-year-old female presents to ED today with a complaint of epistaxis to her left nare that began while at work prior to arrival. She states upon arrival the bleeding has subsided. She reports a few nosebleeds as a child but has not had any issues since. No injury or trauma. She has not been ill recently. Reporting controlled blood pressure. complaint: epistaxis Location: left nostril Onset (ago): minute(s) Duration: now resolved Associated symptoms: Reports no associated symptoms; Deny sinus pain Treatment prior to arrival: nose pinching and head tilted back Review of Systems ENMT: Reports: epistaxis; Denies: throat pain, odynophagia, ear or mastoid pain, ear discharge, change in hearing, disequilibrium, nasal discharge, nasal congestion, post nasal drip or sinus pain Resp: Denies: productive cough or non-productive cough PFS ED PFSH: Medical History Ganglion cyst state, incidental Surgical History S/P tonsillectomy and adenoidectomy Social History Smoking and tobacco/nicotine status: never used tobacco/nicotine Alcohol intake: current Alcohol intake frequency: holidays/special occasions only Substance/Drug Use: never Physical Exam Const: COMMON NORMALS: no acute distress, no limitations and well nourished GENERAL APPEARANCE: cooperative HENMT: COMMON NORMALS: external ears normal, EAC's normal, TM's normal bilaterally, Normal external nose present and Normal nasal mucous membranes and turbinates present FACE & SINUS: normal facial exam NOSE: Normal external nose present, No nasal polyps present, Normal nasal mucous membranes and turbinates present, No nasal discharge present and Epistaxis present (no current bleeding noted) EXTERNAL EAR: Yes external ears normal EXTERNAL AUDITORY CANAL: EAC's normal TYMPANIC MEMBRANE: TM's normal bilaterally Course Vital Signs: Vital signs: Vital Signs Temperature 97.7 F 10/02/23 14:30 Pulse Rate 92 10/02/23 14:30 Respiratory Rate 18 10/02/23 14:30 Blood Pressure 146/88 10/02/23 14:30 Pulse Oximetry 96 10/02/23 14:30 Oxygen Delivery Me thod Room Air 10/02/23 14:30 MDM - Epistaxis Medical Decision Making Upon arrival to the emergency department bleeding has stopped. She was monitored for over 20 minutes and bleeding never resumed. There is nothing further to do from an ED standpoint. She was provided a nasal clamp and instructions should bleeding return when she gets home. Return to ED precautions given. Differential Diagnosis Likely anterior epistaxis Medical Records I reviewed the patient's medical records. No radiology studies performed this visit Discharge Plan Discharge Patient Disposition: Home Clinical Impression: Acute anterior epistaxis Condition: Stable Prescriptions: No Action clindamycin phosphate 1 % gel 1 applic topical BID Qty: 60 0RF Rx Instructions: until resolved amoxicillin 875 mg tablet 875 mg PO BID 7 Days Qty: 14 0RF ibuprofen 200 mg Capsule 800 mg PO Q6H PRN (Reason: Pain) promethazine 25 mg tablet 25 mg PO Q6H PRN (Reason: headache) Qty: 20 0RF Discharge Orders: Discharge ED (Routine); Ordered 10/02/23 Ordered By: Jane Cagle Referrals: Dayana Oliva MD [Primary Care Provider] - Patient Instructions: Epistaxis - Adult Activity Restrictions/Additional Instructions: As we discussed if bleeding returns you have been provided a nasal clamp. You can apply this for 15 to 20 minutes. If bleeding persists please try 2 sprays of Afrin OTC nasal spray and then apply clamp for an additional 15 minutes. You may also try ice. If bleeding is still persistent you may return to the emergency department. Coding Level of Care Code ED Flying Ii Instructor for Leena Guerin
== END 2023-10-02 15:07 | disposition home or self-care (01) ==
PROVIDERS: Emergency Provider Physician Assistant; PCP Family Medicine
DX: R04.0 Epistaxis (principal)
CPT/HCPCS: 99281

== ENCOUNTER → 2023-11-14 16:49 | Outpatient (BNVA) | payer MEDICAID, SELFPAY | PROVIDERS: PCP Family Medicine; Visit Provider Emergency Medicine | DX: J02.9 Acute pharyngitis, unspecified (principal) | CPT/HCPCS: 87071; 87400; 87880 ==

== ENCOUNTER → 2024-01-22 10:09 | Outpatient (BNVA) | payer MEDICAID, SELFPAY | PROVIDERS: PCP Family Medicine; Visit Provider Emergency Medicine | DX: J02.9 Acute pharyngitis, unspecified (principal) | CPT/HCPCS: 87071; 87880 ==

== ENCOUNTER 2024-01-25 22:07 | Emergency (ER) | payer MEDICAID, SELFPAY ==
[2024-01-25 22:19] VITALS: BP 177/109; PULSE 88; RESP 18; TEMP 37.2; O2SAT 98
--- NOTE | 2024-01-25 22:40 | W.ED.GENADLT ---
HPI - General Adult General: Chief complaint: General Medical Stated complaint: stung by wasp Time Seen by Provider: 01/25/24 22:10 Source: patient Mode of arrival: ambulatory Limitations: no limitations History of Present Illness: Patient presents emergency department today for evaluation treatment of sting sustained to her anterior neck approximately 20 to 30 minutes prior to arrival. Patient states that it was a wasp that stung her. She has never had an anaphylactic reaction to wasp stings in the past. She states the area is tender, swollen, and itchy. She has not taken any medications prior to arrival. Review of Systems General: Reports: 10 or more systems reviewed and unremarkable except in HPI and below PFSH ED PFSH: Medical History Ganglion cyst state, incidental Surgical History S/P tonsillectomy and adenoidectomy Social History Smoking and tobacco/nicotine status: never used tobacco/nicotine Alcohol intake: current Alcohol intake frequency: holidays/special occasions only Substance/Drug Use: never Physical Exam Const: COMMON NORMALS: no acute distress, patient oriented x3 and alert OTHER: Patient is pleasant, social. Answers her own history. HENMT: OTHER: No facial swelling. No angioedema. Airway is patent. Eye: COMMON NORMALS: Equal, round and reactive pupils present, EOMs intact bilaterally and conjunctivae normal CONJUNCTIVA: Yes conjunctivae normal PUPIL: Yes Equal, round and reactive pupils present Neck/C-Spine: COMMON NORMALS: no JVD Lymph: LYMPHATIC: no lymphadenopathy noted Resp: COMMON NORMALS: normal respiratory effort, No retractions and No use of accessory muscles OTHER: No stridor. No wheezing. Cardio: COMMON NORMALS: no JVD and regular rate RATE: regular rate : COMMON NORMALS: Yes no CVA tenderness BLADDER/KIDNEY EXAM: Yes no CVA tenderness Back/Pelvis: COMMON NORMALS: no CVA tenderness, thoracic and lumbar spine normal to inspection and thoraco-lumbar ROM normal Extremity: COMMON NORMALS: normal to inspection, full ROM and no pedal edema Neuro: COMMON NORMALS: patient oriented x3 SENSORIUM/ORIENTATION: Yes alert Skin: COMMON NORMALS: no rashes or lesions noted and turgor normal NARRATIVE SKIN EXAM: Patient has a circular area of light erythema approximately 4 cm in diameter located to the right superior, anterior portion of the soft tissue of the neck. Examination shows no signs of any retained foreign body such as a stinger within the skin. No signs of open wound. No blister. No draining. GENERAL SKIN EXAM: no rashes or lesions noted and turgor normal Course Vital Signs: Vital signs: Vital Signs Temperature 99.0 F 01/25/24 22:19 Pulse Rate 88 01/25/24 22:19 Respiratory Rate 18 01/25/24 22:19 Blood Pressure 177/109 01/25/24 22:19 Pulse Oximetry 98 01/25/24 22:19 Oxygen Delivery Me thod Room Air 01/25/24 22:19 MDM - General Adult Medical Decision Making Patient presents to the ER today for evaluation treatment of insect sting. Patient shows no signs of any anaphylaxis. She has a very localized response with erythema, swelling, and tenderness. Patient was treated symptomatically with H2 blockers and antihistamines. Discussed with her rebound reactions and therefore, patient was given prescription sent to the pharmacy to be picked up and continued for the next several days. Also encouraged application of cool compresses and [id number] topical steroid to help with symptoms. Patient was given strict return precautions for stridor, facial swelling, or signs of anaphylaxis. Informational handouts regarding these types of reactions and clinical course of insect stings for her reference at home. Patient verbalizes understanding and agreement to treatment plan. Differential Diagnosis Insect sting, hypersensitivity reaction, hives, anaphylaxis No radiology studies performed this visit Discharge Plan Discharge Patient Disposition: Home Clinical Impression: Hypersensitivity reaction, Sting, insect Condition: Stable Prescriptions: New prednisone 20 mg tablet 20 mg PO BID 5 Days Qty: 10 0RF Pepcid 20 mg tablet 20 mg PO BID 5 Days Qty: 10 0RF Allergy Relief (loratadine) 10 mg tablet 10 mg PO DAILY 5 Days Qty: 5 0RF Benadryl 25 mg capsule 25 mg PO Q8H PRN (Reason: allergic reaction) Qty: 30 0RF No Action ibuprofen 600 mg tablet 600 mg PO Q8H PRN (Reason: pain) Qty: 30 0RF Discharge Orders: Discharge ED (Routine); Ordered 01/25/24 Ordered By: Milady De Leon Referrals: Dayana Oliva MD [Primary Care Provider] - Discharge Diet: Usual diet Discharge Activity: Resume usual activity Patient Instructions: Allergic Reaction, Insect Bite or Sting (ED) Activity Restrictions/Additional Instructions: We provided you with medication here in the emergency department to help calm swelling and irritation from the insect sting. Unfortunately, you can have recurrence of swelling and allergic reaction as medication begins to wear off so, we have provided you with a continued regimen of medication sent to the pharmacy to be picked up and continued in the morning. You can apply cool compresses to the site to help with discomfort. You can also use [id number] topical steroid cream that with any itching. Need to carefully monitor for any signs of lip, tongue, or throat swelling. If you have any difficulty breathing or the signs of facial swelling you need to be seen and reevaluated back here in the emergency department immediately. Coding Level of Care Code ED Extension Associate for Leena Guerin
[2024-01-25] MEDS: diphenhydrAMINE 50 mg Capsule PO (22:48)
[2024-01-25] MEDS: famotidine 20 mg Tablet 40 MG PO (22:49)
[2024-01-25] MEDS: loratadine 10 mg Tablet PO (22:49)
[2024-01-25] MEDS: predniSONE 20 mg Tablet 60 MG PO (22:49)
== END 2024-01-25 22:58 | disposition home or self-care (01) ==
PROVIDERS: Emergency Provider Physician Assistant; PCP Family Medicine
DX: T63.461A Toxic effect of venom of wasps, accidental (unintentional), initial encounter (principal)
CPT/HCPCS: 99283; J7512; Q0163

== ENCOUNTER → 2024-01-26 12:19 | Outpatient (BNVA) | payer MEDICAID, SELFPAY | PROVIDERS: PCP Family Medicine; Visit Provider Nurse Practitioner Family | DX: J02.9 Acute pharyngitis, unspecified (principal) | CPT/HCPCS: 87880 ==

== ENCOUNTER 2024-04-04 11:40 | Emergency (ER) | payer MEDICAID, SELFPAY ==
[2024-04-04 11:59] VITALS: BP 150/83; PULSE 79; RESP 16; TEMP 36.9; O2SAT 97; BMI 43.9
[2024-04-04 13:06] LABS: Basophils % 0.5 %; Eosinophils # 0.1 10^3/uL (0.0-0.8); Eosinophils % 2.3 %; Hematocrit 37.5 % (36-47); Lymphocytes # 1.4 10^3/uL (0.8-4.8); Lymphocytes % 31.7 %; Mean Corpuscular HGB Conc 31.7 g/dL (30-55); Mean Corpuscular Hemoglobin 29.6 pg (27-33); Mean Corpuscular Volume 93.3 fl (85-98); Mean Platelet Volume 9.8 fL (7.4-10.4); Monocytes # 0.3 10^3/uL (0.2-0.9); Monocytes % 6.6 %; Neutrophils # 2.57 10^3/uL (1.8-7.7); Neutrophils % 58.7 %; Nucleated Red Blood Cells % 0 %; Platelet Count 148 10^3/cmm (157-399); Red Blood Count 4.02 10^6/uL (3.85-5.65); Red Cell Distribution Width 14.6 % (12.1-15.1); White Blood Count 4.38 10^3/uL (3.29-11.43)
[2024-04-04 13:26] LABS: Alanine Aminotransferase 66 U/L (0-33); Albumin Level 4.5 g/dL (3.5-5.2); Alkaline Phosphatase 131 U/L (35-105); Anion Gap 15.9 (5-19); Aspartate Amino Transferase 115 U/L (0-32); Blood Urea Nitrogen 7 mg/dL (6-20); C Reactive Protein 5.1 mg/L (0.0-4.9); Calcium 9.7 mg/dL (8.5-10.5); Carbon Dioxide 24 mmol/L (22-29); Chloride 107 mmol/L (98-107); Creatinine Clr Calc Pharmacy 166.5479; Globulin 3.1 g/dL (1.3-4.6); Glomerular Filtration Rate 121.8 mL/min (90-130); Glucose 149 mg/dL (65-115); Lipase 25 U/L (13-60); Osmolality Calculated 297 mOsm/kg (285-295); Potassium 3.9 mmol/L (3.5-5.1); Sodium 143 mmol/L (136-145); Total Bilirubin 1.1 mg/dL (0.15-1.2); Total Protein 7.6 g/dL (6.6-8.7)
--- NOTE | 2024-04-04 13:26 | W.ED.ABDPA2 ---
HPI - Abdominal Pain General: Chief Complaint: Abdominal Pain Stated Complaint: abd pains Time Seen by Provider: 04/04/24 13:17 Source: patient Mode of arrival: ambulatory Limitations: no limitations History of Present Illness: Patient is a 23-year-old female who presents to ED today with a complaint of abdominal pain over the past 3 days. She states pain has not worsened or improved since onset. She states yesterday she had some nausea and vomiting. No hematemesis. She is reporting normal bowel movements. No previous abdominal surgeries. No fevers. She has no urinary complaints or flank pain. She is complaining of some minor lower back pain. She has no pain into her chest or shoulders. She states most of her pain is epigastric/periumbilical. No masses or bulges. Patient states she attempted to take ibuprofen for discomfort which made her abdominal pain worse. She does report drinking a glass of warm tea that seemed to help. When asked about alcohol use she tells me that she does drink daily. When asked to quantify she states she will normally drink 10 shooters daily. Denies large amounts of NSAIDS. No history of GI bleeds. No dark/tarry stools. MD elicited complaint: abdominal pain Pertinent past history: none Onset (ago): day(s) Pain Consistency: constant Location: Epigastric and Other (periumbilical) Severity: moderate Radiation: none Migration to: no migration Exacerbating factors: eating and other (ibuprofen) Relieving factors: other (states she drank some hot tea that seemed to help) Associated Symptoms: Reports nausea and vomiting; Denies change in bowel habits, chills, diarrhea, dysuria, fever(s), hematochezia, hematemesis and melena Related Data: Date of Last Menstrual Period: 03/19/24 Patient : No Review of Systems Const: Denies: fever(s), chills, body aches, fatigue or malaise Card: Denies: chest pain Resp: Denies: dyspnea GI: Reports: abdominal pain, nausea and vomiting; Denies: hematemesis, diarrhea, change in bowel habits, hematochezia or melena : Denies: flank pain, difficulty voiding, dysuria, urinary frequency, urinary urgency or urinary hesitancy Musc: Reports: back pain; Denies: neck pain, extremity pain, extremity swelling, joint pain or joint swelling Skin/Breast: Denies: rash Neuro: Denies: headache(s), numbness in extremities, weakness in extremities, sensory changes or dizziness [facility] ED PFSH: Medical History Ganglion cyst state, incidental Surgical History S/P tonsillectomy and adenoidectomy Social History Smoking and tobacco/nicotine status: never used tobacco/nicotine Alcohol intake: current Alcohol intake frequency: holidays/special occasions only Substance/Drug Use: never Female Reproductive History: Date of last menstrual period: 03/19/24 Physical Exam Const: COMMON NORMALS: no acute distress, patient oriented x3, no limitations, alert and well nourished GENERAL APPEARANCE: cooperative NUTRITIONAL APPEARANCE: obese morbidly obese (BMI 43.9) ORIENTATION/CONSCIOUSNESS: Yes awake, Yes oriented to person, Yes oriented to place and Yes oriented to time Eye: COMMON NORMALS: no scleral icterus Resp: COMMON NORMALS: normal respiratory effort and clear to auscultation bilaterally AUSCULTATION: clear to auscultation bilaterally Cardio: COMMON NORMALS: regular rate and regular rhythm RATE: regular rate RHYTHM: regular rhythm GI: COMMON NORMALS: Normal to inspection, nondistended, normoactive bowel sounds present, Soft to palpation and no masses INSPECTION: Yes normal to inspection AUSCULTATION: Yes normoactive bowel sounds PALPATION: Yes Soft to palpation, Yes Tenderness to palpation present (GI) (throughout mid abdomen; no guarding; non-surgical exam), No Guarding due to palpation present (GI) and No Rigid due to palpation : COMMON NORMALS: Yes no CVA tenderness BLADDER/KIDNEY EXAM: Yes no CVA tenderness Back/Pelvis: COMMON NORMALS: no CVA tenderness and thoracic and lumbar spine normal to inspection Extremity: GENERAL: Yes normal exam except as noted Neuro: DAMAR[place] COMA SCALE: document GCS findings [place] coma scale eye opening: Spontaneous [place] coma scale verbal response: Orientated [place] coma scale motor response: Obey commands [place] coma scale total score: 15 COMMON NORMALS: patient oriented x3, moves all extremities, no focal motor deficits, no sensory deficits noted and gait normal SENSORIUM/ORIENTATION: Yes alert, Yes oriented to person, Yes oriented to place and Yes oriented to time Skin: COMMON NORMALS: no rashes or lesions noted GENERAL SKIN EXAM: no rashes or lesions noted Course Vital Signs: Vital signs: Vital Signs Temperature 98.5 F 04/04/24 11:59 Pulse Rate 100 04/04/24 13:50 Respiratory Rate 16 04/04/24 11:59 Blood Pressure 147/85 04/04/24 13:50 Pulse Oximetry 95 04/04/24 13:50 Oxygen Delivery Me thod Room Air 04/04/24 13:50 MDM - Abdominal Pain Medical Decision Making Patient is a nice 23-year-old female here for epigastric/periumbilical abdominal pain starting 3 days ago. Abdominal pain is not worsened over that time period. Patient feels like pain worsened with Ibuprofen use. She states it burned with the GI cocktail given here. Patient does partake in heavy alcohol use stating she will drink approximately 10 shooters at night. She states she does not get symptomatic if she does not drink. Abdomen is nonsurgical. She arrives in no acute distress with stable vital signs. Her blood work overall is unremarkable. She does have elevated liver enzymes although these have been present over the past year or two. This is most likely secondary to her alcohol use or even fatty liver given her obesity status. UA is grossly contaminated. It does show the presence of clue cells. When asked she does admit to vaginal discharge. Will go and place her on Flagyl and she was given strict instructions to not drink while on this medication. Will go and put her on Carafate and Protonix for the probable gastritis. Return ED precautions given. Differential Diagnosis Likely abdominal pain, constipation, diverticulitis, gastroenteritis, pancreatitis and small bowel obstruction Medical Records I reviewed the patient's medical records. Lab Data I reviewed the patient's lab results. 04/04/24 12:49 04/04/24 12:49 Labs/Radiology: Laboratory Results WBC 4.38 10^3/uL (3.29-11.43) 04/04/24 12:49 RBC 4.02 10^6/uL (3.85-5.65) 04/04/24 12:49 Hgb 11.90 g/dL (11.27-16.99) 04/04/24 12:49 Hct 37.5 % (36-47) 04/04/24 12:49 MCV 93.3 fl (85-98) 04/04/24 12:49 MCH 29.6 pg (27-33) 04/04/24 12:49 MCHC 31.7 g/dL (30-55) 04/04/24 12:49 RDW 14.6 % (12.1-15.1) 04/04/24 12:49 Plt Count 148 10^3/cmm (157-399) L 04/04/24 12:49 MPV 9.8 fL (7.4-10.4) 04/04/24 12:49 Neut % (Auto) 58.7 % 04/04/24 12:49 Lymph % (Auto) 31.7 % 04/04/24 12:49 Bland % (Auto) 6.6 % 04/04/24 12:49 Eos % (Auto) 2.3 % 04/04/24 12:49 Baso % (Auto) 0.5 % 04/04/24 12:49 Neut # (Auto) 2.57 10^3/uL (1.8-7.7) 04/04/24 12:49 Lymph # (Auto) 1.4 10^3/uL (0.8-4.8) 04/04/24 12:49 [place] # (Auto) 0.3 10^3/uL (0.2-0.9) 04/04/24 12:49 Eos # (Auto) 0.1 10^3/uL (0.0-0.8) 04/04/24 12:49 Baso # (Auto) 0.0 10^3/uL (0.0-0.1) 04/04/24 12:49 Nucleated RBC % (auto) 0 % 04/04/24 12:49 Nucleated RBCs # 0.0 /100WBC 04/04/24 12:49 Sodium 143 mmol/L (136-145) 04/04/24 12:49 Potassium 3.9 mmol/L (3.5-5.1) 04/04/24 12:49 Chloride 107 mmol/L (98-107) 04/04/24 12:49 Carbon Dioxide 24 mmol/L (22-29) 04/04/24 12:49 Anion Gap 15.9 (5-19) 04/04/24 12:49 BUN 7 mg/dL (6-20) 04/04/24 12:49 Creatinine 0.6 mg/dL (0.5-0.9) 04/04/24 12:49 GFR Calculation 121.8 mL/min (90-130) 04/04/24 12:49 Glucose 149 mg/dL (65-115) H 04/04/24 12:49 Calculated Osmolality 297 mOsm/kg (285-295) H 04/04/24 12:49 Calcium 9.7 mg/dL (8.5-10.5) 04/04/24 12:49 Total Bilirubin 1.1 mg/dL (0.15-1.2) 04/04/24 12:49 AST 115 U/L (0-32) H 04/04/24 12:49 ALT 66 U/L (0-33) H 04/04/24 12:49 Alkaline Phosphatase 131 U/L (35-105) H 04/04/24 12:49 C-Reactive Protein 5.1 mg/L (0.0-4.9) H 04/04/24 12:49 Total Protein 7.6 g/dL (6.6-8.7) 04/04/24 12:49 Albumin 4.5 g/dL (3.5-5.2) 04/04/24 12:49 Globulin 3.1 g/dL (1.3-4.6) 04/04/24 12:49 Lipase 25 U/L (13-60) 04/04/24 12:49 HCG, Qual Negative (Negative) 04/04/24 13:22 Urine Color Yellow (Yellow) 04/04/24 13:22 Urine Appearance Cloudy (CLEAR) A 04/04/24 13:22 Urine pH 6 (5-7) 04/04/24 13:22 Ur Specific [place] 1.020 (1.005-1.030) 04/04/24 13:22 Urine Protein Trace (Negative) 04/04/24 13:22 Urine Glucose (UA) Norm (Normal) 04/04/24 13:22 Urine Ketones 1+ (Negative) H 04/04/24 13:22 Urine Blood Neg (Negative) 04/04/24 13:22 Urine Nitrate Negative (Negative) 04/04/24 13:22 Urine Bilirubin 1+ (Negative) H 04/04/24 13:22 Urine Urobilinogen 4 mg/dL (Negative) H 04/04/24 13:22 Ur Leukocyte Esterase Trace (Negative) H 04/04/24 13:22 Urine RBC 0-4 /hpf (0-2) H 04/04/24 13:22 Urine WBC 0-4 /hpf (0-5) H 04/04/24 13:22 Ur Squamous Epith Cells 55-80 /hpf (0-5) H 04/04/24 13:22 Calcium Oxalate Crystal >100 /hpf H 04/04/24 13:22 Amorphous Sediment Not Reportable 04/04/24 13:22 Urine Bacteria 3+ /hpf (NONE) H 04/04/24 13:22 Urine Mucus 1+ /hpf 04/04/24 13:22 All radiology interpretation(s) finalized by discharge Discharge Plan Discharge Patient Disposition: Home Clinical Impression: Bacterial vaginosis Alcoholic gastritis Qualifiers: Chronicity: acute Gastritis bleeding: without bleeding Qualified Code(s): K29.20 - Alcoholic gastritis without bleeding Condition: Stable Prescriptions: New Carafate 1 gram tablet 1 g PO TID 14 Days Qty: 42 0RF metronidazole 500 mg tablet 500 mg PO BID 7 Days Qty: 14 0RF Protonix 40 mg tablet,delayed release (DR/EC) 40 mg PO DAILY 28 Days Qty: 28 0RF No Action ibuprofen 200 mg Tablet 400 - 600 mg PO Q6H PRN (Reason: Pain) Discharge Orders: Discharge ED (Routine); Ordered 04/04/24 Ordered By: Jane Cagle Referrals: Dayana Oliva MD [Primary Care Provider] - Patient Instructions: Gastritis (DC) Activity Restrictions/Additional Instructions: As we discussed we are putting you on medications to help with your stomach discomfort. I would like you to abstain from alcohol and please follow-up with your primary care provider later this week or early next week. You need to return to the emergency department for worsening symptoms. As we discussed you were incidentally found to have bacterial vaginosis. You reported you are symptomatic so we will go ahead and place you on Flagyl. As we discussed do not drink while on this medication as it will make you ill. Coding Level of Care Code ED Guidance And Control System Engineer for Leena Guerin
[2024-04-04 13:42] LABS: HCG Qualitative Urine. Negative (Negative)
[2024-04-04] MEDS: lidocaine 2% viscous 15 ML, aluminum-mag hydrox-simethicon 30 ML, sucralfate oral liq 1 GM PO (13:49)
[2024-04-04 13:50] VITALS: BP 147/85; PULSE 100; O2SAT 95
[2024-04-04 14:21] LABS: Urine Appearance Cloudy (CLEAR); Urine Color Yellow (Yellow); pH Urine 6 (5-7)
[2024-04-04 14:22] LABS: Bilirubin Urine 1+ (Negative); Blood Urine Neg (Negative); Glucose Urine UA Norm (Normal); Ketones Urine 1+ (Negative); Leukocyte Esterase Urine Trace (Negative); Nitrate Urine Negative (Negative); Protein Urine Trace (Negative); Urobilinogen Urine 4 mg/dL (Negative)
[2024-04-04 14:23] LABS: RBC Urine 0-4 /hpf (0-2); Squamous Epithelial Cell Urine 55-80 /hpf (0-5); WBC Urine 0-4 /hpf (0-5)
[2024-04-04] MEDS: pantoprazole 40 mg SDV IVP (14:23)
[2024-04-04 14:24] LABS: Add Urine Culture? No; Bacteria Urine 3+ /hpf; Calcium Oxalate Crystals Urine >100 /hpf; Mucus Urine 1+ /hpf
== END 2024-04-04 14:56 | disposition home or self-care (01) ==
PROVIDERS: Emergency Medicine; Emergency Provider Physician Assistant; PCP Family Medicine
DX: N76.0 Acute vaginitis (principal); K29.20 Alcoholic gastritis without bleeding
CPT/HCPCS: 36415; 80053; 81001; 81025; 83690; 85025; 86140; 96374; 99284; C9113

== ENCOUNTER 2024-09-05 10:59 | Emergency (ER) | payer MEDICAID, SELFPAY ==
[2024-09-05 11:07] VITALS: BP 167/106; PULSE 103; RESP 18; TEMP 36.8; O2SAT 97; BMI 45.9
[2024-09-05 12:06] LABS: ABG PCO2 37.9 mmHg (35-45); Alveolar-Arterial Oxygen Gradi 1.1 mmHg (5-10); Arterial Blood Gas Hematocrit 40.6 % (37-47); Base Excess ABG 5.6 mmol/L (-2.0-2.0); Blood Gas Allen Test Pos; Blood Gas Sample Type Arterial; Carboxyhemoglobin 1.5 %THgb (0.4-20.1); HCO3 ABG 29.2 mmol/L (22-26); HGB O2 Sat 96.8 % (95-100); Ionized Calcium Level - ABG 1.1 mmol/L (1.1-1.4); Methemoglobin 0.1 % (0.4-1.5); Oxygen Saturation ABG 98.4; PO2 ABG 91.6 mmHg (80.0-100.0); Potassium Level - ABG 3.6 mmol/L (3.5-5.0); Total Hemoglobin 13.3 g/dL (12-16)
[2024-09-05 12:07] LABS: Blood Gas Operator Identificat MONRO; Blood Gas Sample Site Radial, left; Oxygen Device ROOM AIR; PO2 FiO2 Ratio Arterial Blood 436
[2024-09-05 14:22] LABS: Basophils % 0.6 %; Eosinophils # 0.1 10^3/uL (0.0-0.8); Eosinophils % 1.5 %; Hematocrit 43.1 % (36-47); Lymphocytes # 1.8 10^3/uL (0.8-4.8); Lymphocytes % 36.9 %; Mean Corpuscular HGB Conc 31.1 g/dL (30-55); Mean Corpuscular Hemoglobin 29.9 pg (27-33); Mean Corpuscular Volume 96.2 fl (85-98); Mean Platelet Volume 9.5 fL (7.4-10.4); Monocytes # 0.3 10^3/uL (0.2-0.9); Monocytes % 6.8 %; Neutrophils # 2.59 10^3/uL (1.8-7.7); Neutrophils % 53.8 %; Nucleated Red Blood Cells % 0 %; Platelet Count 141 10^3/cmm (157-399); Red Blood Count 4.48 10^6/uL (3.85-5.65); White Blood Count 4.82 10^3/uL (3.29-11.43)
[2024-09-05 14:48] LABS: Lactic Sepsis W/Reflex 2.2 mmol/L (0.5-2.2)
[2024-09-05 15:07] LABS: Alanine Aminotransferase 73 U/L (0-33); Albumin Level 4.6 g/dL (3.5-5.2); Alkaline Phosphatase 182 U/L (35-105); Anion Gap 19.5 (5-19); Aspartate Amino Transferase 186 U/L (0-32); Blood Urea Nitrogen 6 mg/dL (6-20); Calcium 8.4 mg/dL (8.5-10.5); Carbon Dioxide 27 mmol/L (22-29); Chloride 98 mmol/L (98-107); Creatinine Clr Calc Pharmacy 163.2254; Globulin 3.1 g/dL (1.3-4.6); Glomerular Filtration Rate 120.8 mL/min (90-130); Glucose 109 mg/dL (65-115); Lipase 18 U/L (13-60); Osmolality Calculated 290 mOsm/kg (285-295); Potassium 3.5 mmol/L (3.5-5.1); Sodium 141 mmol/L (136-145); Total Bilirubin 1.9 mg/dL (0.15-1.2); Total Protein 7.7 g/dL (6.6-8.7)
[2024-09-05 15:09] LABS: Alcohol Level < 10 mg/dL (0-10)
[2024-09-05 16:03] LABS: Reflex Lactate Order REFLEX LACTIC ORDERD
[2024-09-05 17:22] LABS: Lactic Acid level (Lactate) 1.9 mmol/L (0.5-2.2)
--- NOTE | 2024-09-05 19:15 | ED_ITS ---
HPI - Nausea/Vomiting/Diarrhea 2 General: Chief complaint: Nausea/Vomiting/Diarrhea Stated complaint: Neuro Symptoms Time Seen by Provider: 09/05/24 18:57 Source: patient Mode of arrival: ambulatory Limitations: no limitations History of Present Illness: Patient is a 24-year-old female with past medical history of anxiety who presents the emergency department complaining of bilateral upper extremity tremors worsening over the past 3 days. Over the same timeframe, she notes copious vomiting and diarrhea, associated with nausea. She states that the symptoms have improved but she is still having shaking and actually is having some pain to her bilateral upper extremities, primarily to her hands. She does not report a history of this. She is not running any fevers, no other neurological symptoms to report, no chest pain or shortness of breath. Denies eating any recent exotic foods. No sick contacts reported. No blood in her vomit or diarrhea. No history of seizures or other pertinent past medical history to report. Does not use marijuana or drink alcohol. MD elicited complaint: nausea, vomiting and diarrhea Onset (ago): day(s) (3) Associated nausea: Yes Associated abdominal pain: No Associated symtoms: Reports nausea; Denies bloating, chest pain, diaphoresis, dizziness, dysuria, headache(s) or palpitations Related Data Home Medications Medication Instructions Recorded Confirmed ibuprofen 200 mg tablet 400 - 600 mg PO Q6H PRN Pain 04/04/24 04/04/24 Previous Rx's Medication Instructions Recorded prednisone 20 mg tablet 60 mg (3 x 20 mg) PO ONCE 5 days 09/05/24 #15 tabs Allergies Allergy/AdvReac Type Severity Reaction Status Date / Time amoxicillin Allergy ADR-Dry Eye Verified 01/26/24 12:13 Iodinated Contrast Media Allergy ALGY-Hives Verified 09/05/24 21:08 naproxen Allergy Unknown Verified 01/26/24 12:13 Sulfa (Sulfonamide Allergy Unknown Verified 01/26/24 12:13 Antibiotics) Review of Systems 2 General: Reports: 10 or more systems reviewed and unremarkable except in HPI and below Const: Denies: fever(s), chills, change in appetite, change in weight or diaphoresis ENMT: Denies: throat pain or hoarseness Card: Denies: chest pain, palpitations or lightheadedness Resp: Denies: dyspnea, productive cough or wheezing GI: Reports: nausea, vomiting and diarrhea; Denies: abdominal pain, hematemesis, constipation, bloating or GI cramping : Denies: flank pain, difficulty voiding, dysuria, urinary frequency or urinary urgency Musc: Reports: extremity pain (Bilateral hands); Denies: neck pain or back pain Skin/Breast: Denies: rash or new lesions Neuro: Reports: involuntary movements (Tremors of bilateral upper extremities); Denies: headache(s), numbness in extremities, weakness in extremities or dizziness PFSH ED 2 PFSH: Medical History Ganglion cyst state, incidental Surgical History S/P tonsillectomy and adenoidectomy Social History Smoking and tobacco/nicotine status: never used tobacco/nicotine Alcohol intake: current Alcohol intake frequency: holidays/special occasions only Substance/Drug Use: never Physical Exam 2 Const: COMMON NORMALS: no acute distress, average body habitus, patient oriented x3, no limitations, healthy appearing, alert and well nourished G ENERAL APPEARANCE: cooperative and comfortable ORIENTATION/CONSCIOUSNESS: Yes awake HENMT: COMMON NORMALS: normocephalic, atraumatic, hearing grossly normal bilaterally, external ears normal, Normal external nose present, Normal nasal mucous membranes and turbinates present and moist oral mucous membranes HEAD & SCALP: normocephalic and atraumatic NOSE: Normal external nose present and Normal nasal mucous membranes and turbinates present EXTERNAL EAR: Yes external ears normal Eye: COMMON NORMALS: Equal, round and reactive pupils present, EOMs intact bilaterally, conjunctivae normal and normal visual melchor by confrontation C ONJUNCTIVA: Yes conjunctivae normal PUPIL: Yes Equal, round and reactive pupils present OTHER: Eyes track midline Neck/C-Spine: COMMON NORMALS: full ROM, supple, no meningeal signs and no JVD Resp: COMMON NORMALS: normal respiratory effort, No retractions, No use of accessory muscles and clear to auscultation bilaterally AUSCULTATION: clear to auscultation bilaterally, no crackles, no rales, no rhonchi and no wheezes Cardio: COMMON NORMALS: no JVD, regular rate, regular rhythm, S1 normal heart sound present, S2 normal heart sound present, No gallops present (Cardio), No clicks present (Cardio), No murmurs present (Cardio), No rub (Cardio) and Peripheral pulses 2+ throughout RATE: regular rate RHYTHM: regular rhythm HEART SOUNDS: S1 normal heart sound present and S2 normal heart sound present PERIPHERAL PULSES: Peripheral pulses 2+ throughout GI: COMMON NORMALS: Normal to inspection, nondistended, normoactive bowel sounds present, Soft to palpation, non-tender, No hepatosplenomegaly present and no masses AUSCULTATION: Yes normoactive bowel sounds PALPATION: Yes Soft to palpation, No Guarding due to palpation present (GI), No Rigid due to palpation and Yes No hepatosplenomegaly present RECTAL EXAM: deferred Extremity: COMMON NORMALS: normal to inspection and full ROM Neuro: COMMON NORMALS: patient oriented x3, CN's II-XII intact bilaterally, moves all extremities and no sensory deficits noted SENSORIUM/ORIENTATION: Y es alert MENINGEAL SIGNS: Yes no meningeal signs MOTOR EXAM: 5/5 motor strength present throughout, Pronator motor function not present, no asterixis, Motor fasciculations not present and Normal motor muscle tone present throughout OTHER: Intention tremor bilateral upper extremities. Psych: COMMON NORMALS: mental status grossly normal, cooperative and speech normal SPEECH: Yes normal speech Skin: COMMON NORMALS: no rashes or lesions noted GENERAL SKIN EXAM: no rashes or lesions noted Course 2 Vital Signs: Vital signs: Vital Signs Temperature 98.2 F 09/05/24 11:07 Pulse Rate 89 09/05/24 21:04 Respiratory Rate 18 09/05/24 11:07 Blood Pressure 142/102 09/05/24 21:04 Pulse Oximetry 96 09/05/24 21:04 Oxygen Delivery Me thod Room Air 09/05/24 21:04 MDM - Nausea/Vomiting/Diarrhea Medical Decision Making Patient presented with bilateral hand pain and shaking, has also had nausea vomiting and diarrhea over the past 2 days that has been improving. Did have an intention tremor on exam, otherwise neurologically intact. No abdominal pain per history or exam. Initial lab work showed elevation in LFTs along with elevation in T. bili, so a CT was obtained showing no stone but evidence of steatohepatitis. Hepatitis panel was negative here. Rest of her lab work unremarkable. Urinalysis not showing signs of infection, though was ultimately untested due to color of her urine. Was not a marijuana smoker or chronic alcoholic. She did have a minor reaction to the contrast dye, she was given Benadryl here. She does state that she has a history of arthritis and has had similar pains in the past with her hands, just not as bad. So we will give dose of steroid here and have her take prednisone at home with close follow-up with primary care and return if worse. Her shaking symptoms were improved after being given Ativan here in the emergency department, she did have a history of anxiety and I think this was playing a part in her symptoms. Discussed patient with Dr. Nieto. Lab Data 09/05/24 13:50 09/05/24 13:56 Radiology Impressions Abdomen/Pelvis CT 09/05/24 19:26 IMPRESSION: 1. No evidence of acute abnormality in the abdomen or pelvis. 2. Hepatomegaly and hepatic steatosis. Consider correlation with clinical and laboratory findings for steatohepatitis. 3. Splenomegaly. 4. Severe L3-L4 and L4-L5 central stenosis. Consider correlation with follow-up outpatient MRI to evaluate for neural impingement. 5. Right lower lobe pulmonary nodule measuring 9 mm. Follow-up up CT of the chest in 3 months is recommended. References: Kristopher Plascencia, et al. Guidelines for Management of Incidental Pulmonary Nodules Detected on CT Images: From the Fleischner Society 2017. Radiology. 2017;284(1):228-243. Laboratory Results WBC 4.82 10^3/uL (3.29-11.43) 09/05/24 13:50 RBC 4.48 10^6/uL (3.85-5.65) 09/05/24 13:50 Hgb 13.40 g/dL (11.27-16.99) 09/05/24 13:50 Hct 43.1 % (36-47) 09/05/24 13:50 MCV 96.2 fl (85-98) 09/05/24 13:50 MCH 29.9 pg (27-33) 09/05/24 13:50 MCHC 31.1 g/dL (30-55) 09/05/24 13:50 RDW 17.0 % (12.1-15.1) H 09/05/24 13:50 Plt Count 141 10^3/cmm (157-399) L 09/05/24 13:50 MPV 9.5 fL (7.4-10.4) 09/05/24 13:50 Neut % (Auto) 53.8 % 09/05/24 13:50 Lymph % (Auto) 36.9 % 09/05/24 13:50 Gray % (Auto) 6.8 % 09/05/24 13:50 Eos % (Auto) 1.5 % 09/05/24 13:50 Baso % (Auto) 0.6 % 09/05/24 13:50 Neut # (Auto) 2.59 10^3/uL (1.8-7.7) 09/05/24 13:50 Lymph # (Auto) 1.8 10^3/uL (0.8-4.8) 09/05/24 13:50 Gray # (Auto) 0.3 10^3/uL (0.2-0.9) 09/05/24 13:50 Eos # (Auto) 0.1 10^3/uL (0.0-0.8) 09/05/24 13:50 Baso # (Auto) 0.0 10^3/uL (0.0-0.1) 09/05/24 13:50 Nucleated RBC % (auto) 0 % 09/05/24 13:50 Nucleated RBCs # 0.0 /100WBC 09/05/24 13:50 Specimen Type Arterial 09/05/24 11:54 Sample Site Radial, left 09/05/24 11:54 ABG pH 7.50 (7.35-7.45) H 09/05/24 11:54 ABG pCO2 37.9 mmHg (35-45) 09/05/24 11:54 ABG pO2 91.6 mmHg (80.0-100.0) 09/05/24 11:54 ABG PO2/FiO2 Ratio 436 09/05/24 11:54 ABG HCO3 29.2 mmol/L (22-26) H 09/05/24 11:54 ABG O2 Saturation 98.4 09/05/24 11:54 ABG Base Excess 5.6 mmol/L (-2.0-2.0) H 09/05/24 11:54 Wenceslao Test Pos 09/05/24 11:54 A-a O2 Gradient 1.1 mmHg (5-10) L 09/05/24 11:54 Hematocrit 40.6 % (37-47) 09/05/24 11:54 Hgb O2 Saturation 96.8 % (95-100) 09/05/24 11:54 Carboxyhemoglobin 1.5 %THgb (0.4-20.1) 09/05/24 11:54 Methemoglobin 0.1 % (0.4-1.5) L 09/05/24 11:54 Total Hemoglobin 13.3 g/dL (12-16) 09/05/24 11:54 Sodium 143.0 mmol/L (131-143) 09/05/24 11:54 Potassium 3.6 mmol/L (3.5-5.0) 09/05/24 11:54 Glucose 126.0 mg/dL (70-115) H 09/05/24 11:54 Ionized Calcium 1.1 mmol/L (1.1-1.4) 09/05/24 11:54 O2 Delivery Device Room air 09/05/24 11:54 FiO2 21.0 % 09/05/24 11:54 Pediatric Care Coordinator ID Monro 09/05/24 11:54 Sodium 141 mmol/L (136-145) 09/05/24 13:56 Potassium 3.5 mmol/L (3.5-5.1) 09/05/24 13:56 Chloride 98 mmol/L (98-107) 09/05/24 13:56 Carbon Dioxide 27 mmol/L (22-29) 09/05/24 13:56 Anion Gap 19.5 (5-19) H 09/05/24 13:56 BUN 6 mg/dL (6-20) 09/05/24 13:56 Creatinine 0.6 mg/dL (0.5-0.9) 09/05/24 13:56 GFR Calculation 120.8 mL/min (90-130) 09/05/24 13:56 Glucose 109 mg/dL (65-115) 09/05/24 13:56 Calculated Osmolality 290 mOsm/kg (285-295) 09/05/24 13:56 Lactic Acid 2.2 mmol/L (0.5-2.2) 09/05/24 13:56 Lactic Acid (Sepsis) 1.9 mmol/L (0.5-2.2) 09/05/24 16:56 Calcium 8.4 mg/dL (8.5-10.5) L 09/05/24 13:56 Total Bilirubin 1.9 mg/dL (0.15-1.2) H 09/05/24 13:56 AST 186 U/L (0-32) H 09/05/24 13:56 ALT 73 U/L (0-33) H 09/05/24 13:56 Alkaline Phosphatase 182 U/L (35-105) H 09/05/24 13:56 Total Protein 7.7 g/dL (6.6-8.7) 09/05/24 13:56 Albumin 4.6 g/dL (3.5-5.2) 09/05/24 13:56 Globulin 3.1 g/dL (1.3-4.6) 09/05/24 13:56 Lipase 18 U/L (13-60) 09/05/24 13:56 HCG, Qual Negative (Negative) 09/05/24 19:03 Urine Color [place] (Yellow) A 09/05/24 19:04 Urine Appearance Slightly cloudy (CLEAR) 09/05/24 19:04 Urine pH Not Reportable 09/05/24 19:04 Ur Specific [place] Not Reportable 09/05/24 19:04 Urine Protein Not tested (Negative) 09/05/24 19:04 Urine Glucose (UA) Not tested (Normal) 09/05/24 19:04 Urine Ketones Not tested (Negative) H 09/05/24 19:04 Urine Blood Not tested (Negative) A 09/05/24 19:04 Urine Nitrate Not tested (Negative) A 09/05/24 19:04 Urine Bilirubin Not tested (Negative) 09/05/24 19:04 Urine Urobilinogen Not tested mg/dL (Negative) A 09/05/24 19:04 Ur Leukocyte Esterase Not tested (Negative) A 09/05/24 19:04 Urine RBC 0-4 /hpf (0-2) H 09/05/24 19:04 Urine WBC 10-15 /hpf (0-5) H 09/05/24 19:04 Ur Squamous Epith Cells 15-25 /hpf (0-5) H 09/05/24 19:04 Ur Transition Epith Cell 0-4 /hpf 09/05/24 19:04 Amorphous Sediment Not Reportable 09/05/24 19:04 Urine Bacteria 1+ /hpf (NONE) H 09/05/24 19:04 Urine Mucus Trace /hpf 09/05/24 19:04 Urine Opiates Screen Negative ng/mL (Negative) 09/05/24 19:04 Ur Barbiturates Screen Negative ng/mL (Negative) 09/05/24 19:04 Ur Phencyclidine Scrn Negative ng/mL (Negative) 09/05/24 19:04 Ur Amphetamines Screen Negative ng/mL (Negative) 09/05/24 19:04 U Benzodiazepines Scrn Negative ng/mL (Negative) 09/05/24 19:04 Urine Cocaine Screen Negative ng/mL (Negative) 09/05/24 19:04 U Marijuana (THC) Screen Negative ng/mL (Negative) 09/05/24 19:04 Ethyl Alcohol < 10 mg/dL (0-10) 09/05/24 13:56 Hepatitis A IgM Ab Non-reactive (Nonreactive) 09/05/24 13:56 Hep Bs Antigen Non-reactive (Nonreactive) 09/05/24 13:56 Hep B Core IgM Ab Non-reactive (Nonreactive) 09/05/24 13:56 Hepatitis C Antibody Non-reactive (Nonreactive) 09/05/24 13:56 All radiology interpretation(s) finalized by discharge Discharge Plan Discharge Patient Disposition: Home Clinical Impression: Arthralgia of both hands Condition: Stable Prescriptions: New prednisone 20 mg tablet 60 mg PO ONCE 5 Days Qty: 15 0RF No Action ibuprofen 200 mg Tablet 400 - 600 mg PO Q6H PRN (Reason: Pain) Discharge Orders: Discharge ED (Routine); Ordered 09/05/24 Ordered By: Brian Stoner Referrals: Dayana Oliva MD [Primary Care Provider] - Patient Instructions: Pain Management Activity Restrictions/Additional Instructions: Follow-up with primary care for general reevaluation and any further workup. Take steroids as prescribed. Return with any new or worsening. Coding Level of Care Code ED Cane Weigher Helper for Leena Guerin
[2024-09-05 19:17] LABS: HCG Qualitative Urine. Negative (Negative)
[2024-09-05 19:18] LABS: Urine Color Orange (Yellow)
[2024-09-05 19:19] LABS: Amphetamines Screen Urine Negative (Negative); Barbiturates Screen Urine Negative (Negative); Benzodiazepines Screen Urine Negative (Negative); Bilirubin Urine Not Tested (Negative); Blood Urine Not Tested (Negative); Cocaine Screen Urine Negative (Negative); Glucose Urine UA Not Tested (Normal); Ketones Urine Not Tested (Negative); Leukocyte Esterase Urine Not Tested (Negative); Nitrate Urine Not Tested (Negative); Opiate Screen Urine Negative (Negative); PCP Screen Urine Negative (Negative); Protein Urine Not Tested (Negative); THC Screen Urine Negative (Negative); Urine Appearance Slightly Cloudy (CLEAR); Urobilinogen Urine Not Tested mg/dL (Negative)
[2024-09-05] MEDS: LORazepam 2 mg Tablet PO (19:19)
[2024-09-05 19:20] VITALS: BP 158/126; PULSE 90; O2SAT 98
[2024-09-05 19:23] LABS: Add Urine Culture? No; Bacteria Urine 1+ /hpf; Mucus Urine TRACE /hpf; RBC Urine 0-4 /hpf (0-2); Squamous Epithelial Cell Urine 15-25 /hpf (0-5); Transitional Epi Cells Urine 0-4 /hpf
--- NOTE | 2024-09-05 19:26 | CTR_ITS ---
PROCEDURE INFORMATION: Exam: CT Abdomen And Pelvis With Contrast Exam date and time: 09/05/2024 7:52 PM Age: 24 years old Clinical indication: Nausea and vomiting; Additional info: N/v/d, elevated tbili TECHNIQUE: Imaging protocol: Computed tomography of the abdomen and pelvis with contrast. Radiation optimization: All CT scans at this facility use at least one of these dose optimization techniques: automated exposure control; mA and/or kV adjustment per patient size (includes targeted exams where dose is matched to clinical indication); or iterative reconstruction. Contrast material: OMNI 350; Contrast volume: 100 ml; Contrast route: INTRAVENOUS (IV); COMPARISON: US gall bladder [id number] 06/24/2023 2:55 PM RADIATION DOSE METRICS: Total DLP (mGy-cm): 1095.41 FINDINGS: Lungs: Subsegmental bibasilar atelectasis. Indeterminate 9 mm pulmonary nodule in the right lung base. The visualized lung bases are otherwise grossly clear. Diaphragm: No evidence of diaphragmatic defect. Liver: Hepatomegaly and hepatic steatosis with right lobe measuring up to 25 cm. No evidence of focal hepatic lesion. Gallbladder and biliary ducts: Unremarkable. No intra-hepatic or extra-hepatic biliary dilatation. Pancreas: Unremarkable. Spleen: Enlarged measuring 14.5 cm in length. Adrenal glands: Unremarkable. Kidneys and ureters: No renal parenchymal abnormality. No hydronephrosis or ureteral stone. Stomach and bowel: No evidence of bowel obstruction or perienteric inflammatory changes. There is prominence of the ascending colonic submucosal fat suggestive of sequela of chronic inflammation. Appendix: Normal appendix. Intraperitoneal space: No evidence of free air or fluid collection. Vasculature: No aneurysmal dilatation or dissection of the abdominal aorta. The celiac trunk, SMA and RADHA are grossly patent. No evidence of IVC thrombus. The portal vein, SMV and splenic veins are grossly patent. Lymph nodes: No adenopathy. Urinary bladder: Grossly unremarkable. Reproductive: Grossly unremarkable. Bones/joints: No evidence of acute fracture or aggressive osseous lesion. L3-L4 and L4-L5 disc bulges results in severe central stenosis. Consider correlation with follow-up outpatient MRI to evaluate for neural impingement. Soft tissues: No evidence of fluid collection or hematoma in the superficial soft tissues. 3 cm fat containing periumbilical hernia. CT/CT abdomen pelvis w con* [id number] IMPRESSION: 1. No evidence of acute abnormality in the abdomen or pelvis. 2. Hepatomegaly and hepatic steatosis. Consider correlation with clinical and laboratory findings for steatohepatitis. 3. Splenomegaly. 4. Severe L3-L4 and L4-L5 central stenosis. Consider correlation with follow-up outpatient MRI to evaluate for neural impingement. 5. Right lower lobe pulmonary nodule measuring 9 mm. Follow-up up CT of the chest in 3 months is recommended. References: Kristopher H, et al. Guidelines for Management of Incidental Pulmonary Nodules Detected on CT Images: From the Fleischner Society 2017. Radiology. 2017;284(1):228-243.
[2024-09-05] MEDS: iohexol 350 mg/mL 500 mL Btl (per mL) IV (19:56)
[2024-09-05 20:01] VITALS: BP 152/98; PULSE 89; O2SAT 97
[2024-09-05] MEDS: diphenhydrAMINE 50 mg/mL SDV 1mL IVP (20:20)
[2024-09-05 21:04] VITALS: BP 142/102; PULSE 89; O2SAT 96
--- NOTE | 2024-09-05 21:05 | PC.NURSE ---
Pt began having swelling of left eye and hives shortly after ct with contrast. 50 mg diphenhydramine administered. Contrast dye added to allergy list.
[2024-09-05 21:47] LABS: Hepatitis A Antibody IgM Non-Reactive (Nonreactive); Hepatitis B Core IgM Non-Reactive (Nonreactive); Hepatitis B Surface Antigen Non-Reactive (Nonreactive); Hepatitis C Virus Antibody Non-Reactive (Nonreactive)
[2024-09-05] MEDS: dexamethasone 10 mg/mL INJ IVP (22:09)
[2024-09-05 23:07] VITALS: BP 147/89; PULSE 96; O2SAT 98
== END 2024-09-05 22:15 | disposition home or self-care (01) ==
PROVIDERS: Emergency Medicine; Emergency Provider Physician Assistant; PCP Family Medicine
DX: M25.542 Pain in joints of left hand (principal); M25.541 Pain in joints of right hand
CPT/HCPCS: 36415; 36600; 74177; 80051; 80053; 80074; 80306; 80307; 81001; 81025; 82330; 82805; 83605; 83690; 85025; 96374; 96375; 99285; J1100; J1200

== ENCOUNTER 2025-06-07 07:57 | Outpatient (CLI) | payer MEDICAID, SELFPAY ==
--- NOTE | 2025-06-07 08:00 | CT_ITS ---
WS: [id number] CT chest w con* [id number] HISTORY: PULMONARY NODULE TECHNIQUE: Axial imaging performed through the thorax. Coronal and sagittal reformats are submitted. All CT scans at [place] use at least one of these dose optimization techniques: automated exposure control; mA and/or kV adjustment per patient size (includes targeted exams where dose is matched to clinical indication); or iterative reconstruction. CONTRAST: Omnipaque 350; 100 mL IV. Patient is allergic to IV contrast and was prepped prior to the CT. DLP: 651.84 mGy.cm COMPARISON: 09/05/2024 Lungs and central airway: Reidentified is a subpleural nodule at the RIGHT lung base measuring 9 x 11 mm. Not significantly changed in size since the prior study. No new or additional nodule or mass. No pneumonia. Pleura: Normal. No pleural effusion. Heart and pericardium: Normal size heart with no pericardial effusion. Mediastinum and doreen: Indeterminate RIGHT hilar lymph nodes with the largest measuring 14 mm. Vessels: Normal size aortic and pulmonary artery. No coronary artery calcifications. Chest wall and lower neck: No soft tissue masses. Upper abdomen: Hepatic steatosis. The liver and spleen appear enlarged although not included in their entirety as this is a chest CT. On the prior study from 09/05/2024 there also was hepatosplenomegaly. There are a few small lymph nodes in the carmel hepatis near the celiac axis with the largest measuring 13 mm. Osseous structures: No destructive process. CT/CT chest w con* [id number] IMPRESSION: 1. Stable well-circumscribed subpleural pulmonary nodule RIGHT lower lobe vince uring 9 x 11 mm. Recommend additional 12-month chest CT follow-up. 2. Indeterminate RIGHT hilar lymph nodes. These may be reactive. 3. Although incompletely included in this CT of the chest the liver and spleen appear to be enlarged as noted on the prior study. There are also a few small indeterminate but prominent lymph nodes in the carmel hepatis and near the jolynn c axis.
[2025-06-07] MEDS: iohexol 350 mg/mL 500 mL Btl (per mL) IV (08:57)
== END 2025-06-07 07:58 | disposition home or self-care (01) ==
LOC: RAD 07:58
PROVIDERS: PCP Family Medicine; Visit Provider Family Medicine
DX: R91.1 Solitary pulmonary nodule (principal); R59.0 Localized enlarged lymph nodes; R16.2 Hepatomegaly with splenomegaly, not elsewhere classified
CPT/HCPCS: 71260

== ENCOUNTER 2025-07-05 09:24 | Oncology outpatient (recurring) (ONCR) | payer MEDICAID, SELFPAY ==
[2025-07-05 10:13] LABS: Hematocrit 35.7 % (36-47); Hemoglobin 11.00 g/dL (11.27-16.99); Mean Corpuscular HGB Conc 30.8 g/dL (30-55); Mean Corpuscular Hemoglobin 27.7 pg (27-33); Mean Corpuscular Volume 89.9 fl (85-98); Nucleated Red Blood Cells % 0 %; Platelet Count 86 10^3/cmm (157-399); Red Blood Count 3.97 10^6/uL (3.85-5.65); White Blood Count 3.39 10^3/uL (3.29-11.43)
[2025-07-05 10:57] LABS: Alanine Aminotransferase 26 U/L (0-33); Albumin Level 4.5 g/dL (3.5-5.2); Alkaline Phosphatase 140 U/L (35-105); Anion Gap 18.9 (5-19); Aspartate Amino Transferase 49 U/L (0-32); Blood Urea Nitrogen 9 mg/dL (6-20); Calcium 9.4 mg/dL (8.5-10.5); Carbon Dioxide 22 mmol/L (22-29); Chloride 108 mmol/L (98-107); Creatinine Clr Calc Pharmacy 192.9397; Ferritin 39 ng/mL (15-150); Globulin 2.9 g/dL (1.3-4.6); Glucose 101 mg/dL (65-115); Iron 45 ug/dL (37-145); Osmolality Calculated 299 mOsm/kg (285-295); Potassium 3.9 mmol/L (3.5-5.1); Sodium 145 mmol/L (136-145); Thyroid Stimulating Hormone 4.70 uIU/mL (0.27-4.20); Total Iron Binding Capacity 425 mcg/dl; Total Protein 7.4 g/dL (6.6-8.7); Unsaturated Iron Binding 380 ug/dL (112-347); Uric Acid 7.5 mg/dL (2.4-5.7); Vitamin B12 388 pg/mL (232-1245)
[2025-07-05 17:10] LABS: Hepatitis A Antibody IgM Non-Reactive (Nonreactive)
[2025-07-05 22:14] LABS: Hepatitis B Surface Antigen Non-Reactive (Nonreactive)
== END 2025-07-18 23:59 | disposition home or self-care (01) ==
PROVIDERS: PCP Family Medicine; Visit Provider Internal Medicine
DX: D64.9 Anemia, unspecified (principal)
CPT/HCPCS: 36415; 80053; 82607; 82728; 82746; 83010; 83540; 83550; 83615; 84238; 84443; 84550; 85025; 85045; 86705; 86706; 86709; 86803; 87340

== ENCOUNTER 2025-09-21 15:23 | Oncology outpatient (recurring) (ONCR) | payer MEDICAID, SELFPAY ==
[2025-09-21 16:32] LABS: Hematocrit 34.7 % (36-47); Hemoglobin 10.70 g/dL (11.27-16.99); Mean Corpuscular HGB Conc 30.8 g/dL (30-55); Mean Corpuscular Hemoglobin 27.4 pg (27-33); Mean Corpuscular Volume 88.7 fl (85-98); Nucleated Red Blood Cells % 0 %; Platelet Count 117 10^3/cmm (157-399); Red Blood Count 3.91 10^6/uL (3.85-5.65); White Blood Count 4.68 10^3/uL (3.29-11.43)
[2025-09-21 16:37] LABS: INR 1.22 (0.8-1.2); Prothrombin Time 16.30 SECONDS (12.1-14.9)
[2025-09-21 16:39] LABS: Alanine Aminotransferase 21 U/L (0-33); Albumin Level 4.3 g/dL (3.5-5.2); Alkaline Phosphatase 155 U/L (35-105); Anion Gap 16.1 (5-19); Aspartate Amino Transferase 47 U/L (0-32); Blood Urea Nitrogen 8 mg/dL (6-20); Calcium 9.5 mg/dL (8.5-10.5); Carbon Dioxide 25 mmol/L (22-29); Chloride 104 mmol/L (98-107); Ferritin 18 ng/mL (15-150); Globulin 3.4 g/dL (1.3-4.6); Glucose 107 mg/dL (65-115); Iron 42 ug/dL (37-145); Osmolality Calculated 291 mOsm/kg (285-295); Potassium 4.1 mmol/L (3.5-5.1); Sodium 141 mmol/L (136-145); Total Iron Binding Capacity 455 mcg/dl; Total Protein 7.7 g/dL (6.6-8.7); Unsaturated Iron Binding 413 ug/dL (112-347)
[2025-09-21 16:54] LABS: Vitamin B12 404 pg/mL (232-1245)
== END 2025-10-18 23:59 | disposition home or self-care (01) ==
PROVIDERS: PCP Family Medicine; Visit Provider Internal Medicine
DX: D61.818 Other pancytopenia (principal)
CPT/HCPCS: 36415; 80053; 82607; 82728; 82746; 83010; 83540; 83550; 83615; 85025; 85045; 85610